=== PATIENT | male | born 1980 | race Caucasian/White ===

== ENCOUNTER 2018-12-14 22:15 | Emergency (ER) | payer SELFPAY ==
[~2018-12-14] VITALS: Ht 177.8 cm; Wt 83.9 kg
[~2018-12-14 22:15] MED LIST: NAPR-243 PO; TRAM50TA2 PO
[2018-12-14] MEDS ORDERED: LIDOCAINE/EPI 2% 1:100,00 (XYLOCAINE) 20 ML VIAL ONE (22:19)
--- NOTE | 2018-12-14 22:58 | NUR ---
REPORT FROM LILLIANA WALLACE. CARE ASSUMED AT THIS TIME.
[2018-12-14 23:03] LABS: BASOPHILS # (AUTO) 0.1 10^3/uL (0.0-0.1); BASOPHILS % (AUTO) 0 % (0-10); EOSINOPHILS # (AUTO) 0.2 10^3/uL (0.0-0.3); EOSINOPHILS % (AUTO) 1 % (0-10); HEMATOCRIT 48 % (40-54); HEMOGLOBIN 16.7 G/DL (13.3-17.7); LYMPHOCYTES # (AUTO) 2.4 X 10^3 (1.0-4.0); LYMPHOCYTES % (AUTO) 16 % (12-44); MEAN CORPUSCULAR HEMOGLOBIN 32 PG (25-34); MEAN CORPUSCULAR HGB CONC 35 G/DL (32-36); MEAN CORPUSCULAR VOLUME 91 FL (80-99); MONOCYTES # (AUTO) 0.9 X 10^3 (0.0-1.0); MONOCYTES % (AUTO) 6 % (0-12); NEUTROPHILS # (AUTO) 11.7 X 10^3 (1.8-7.8); NEUTROPHILS % (AUTO) 77 % (42-75); PLATELET COUNT 258 10^3/uL (130-400); RED CELL DISTRIBUTION WIDTH 12.7 % (10.0-14.5); WHITE BLOOD COUNT 15.2 10^3/uL (4.3-11.0)
--- NOTE | 2018-12-14 23:06 | NUR ---
PT TO CT PER W/C AT THIS TIME.
[2018-12-14 23:17] LABS: BILIRUBIN,URINE NEGATIVE (NEGATIVE); CLARITY,URINE CLEAR; COLOR,URINE YELLOW; GLUCOSE, URINE (UA) NEGATIVE (NEGATIVE); KETONES,URINE NEGATIVE (NEGATIVE); LEUKOCYTE ESTERASE ,URINE NEGATIVE (NEGATIVE); NITRITE,URINE NEGATIVE (NEGATIVE); PH,URINE 6 (5-9); PROTEIN,URINE 1+ (NEGATIVE); UROBILINOGEN,URINE NORMAL (NORMAL)
[2018-12-14 23:23] LABS: ALANINE AMINOTRANSFERASE 210 U/L (0-55); ALBUMIN 4.6 GM/DL (3.2-4.5); ALKALINE PHOSPHATASE 98 U/L (40-136); BILIRUBIN,TOTAL 0.4 MG/DL (0.1-1.0); BUN/CREATININE RATIO 8; CALCIUM 8.9 MG/DL (8.5-10.1); CARBON DIOXIDE 18 MMOL/L (21-32); CHLORIDE 109 MMOL/L (98-107); CREATININE SERUM 0.86 MG/DL (0.60-1.30); GFR ESTIMATED > 60; GLUCOSE 106 MG/DL (70-105); POTASSIUM 3.4 MMOL/L (3.6-5.0); SALICYLATE < 5.0 MG/DL (5.0-20.0); SODIUM 142 MMOL/L (135-145); TOTAL PROTEIN 8.1 GM/DL (6.4-8.2)
[2018-12-14 23:23] LABS: SQUAMOUS EPITHELIAL CELL,UR RARE /HPF
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
--- NOTE | 2018-12-14 23:26 | NUR ---
PT AT DESK, [facility]. FAMILY ATTEMPTING TO CALM PT W/O SUCCESS.
[2018-12-14 23:28] LABS: AMPHETAMINE SCREEN, URINE NEGATIVE (NEGATIVE); BARBITURATE SCREEN URINE NEGATIVE (NEGATIVE); BENZODIAZEPINES SCREEN URINE NEGATIVE (NEGATIVE); CANNABINOID SCREEN, URINE POSITIVE (NEGATIVE); COCAINE SCREEN URINE NEGATIVE (NEGATIVE); METHADONE STAT NEGATIVE (NEGATIVE); METHAMPHETAMINE SCREEN URINE S NEGATIVE (NEGATIVE); OPIATE SCREEN URINE NEGATIVE (NEGATIVE); OXYCODONE STAT NEGATIVE (NEGATIVE); PROPOXYPHENE STAT NEGATIVE (NEGATIVE); TRICYCLIC ANTIDEPRESSANTS SCRE NEGATIVE (NEGATIVE)
[2018-12-14 23:30] LABS: ACETAMINOPHEN < 10 UG/ML (10-30)
--- NOTE | 2018-12-14 23:37 | NUR ---
PT TO RADIOLOGY W/ SHERIFF CAMACHO ET SECURITY
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
[2018-12-15 00:23] VITALS: BP 119/87
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
== END 2018-12-15 00:23 ==
LOC: EDUNIT# 22:15 → ER 22:16
DX: S01.01XA Laceration without foreign body of scalp, initial encounter (principal); S20.212A Contusion of left front wall of thorax, initial encounter; S00.531A Contusion of lip, initial encounter; S00.83XA Contusion of other part of head, initial encounter; F10.129 Alcohol abuse with intoxication, unspecified; F17.210 Nicotine dependence, cigarettes, uncomplicated; R40.2142 Coma scale, eyes open, spontaneous, at arrival to emergency department; R40.2252 Coma scale, best verbal response, oriented, at arrival to emergency department; R40.2362 Coma scale, best motor response, obeys commands, at arrival to emergency department; Y90.8 Blood alcohol level of 240 mg/100 ml or more; Y00.XXXA Assault by blunt object, initial encounter
CPT/HCPCS: 12015; 36415; 70450; 71046; 71100; 72125; 80053; 80306; 80320; 80329; 81000; 85025

== ENCOUNTER 2018-12-22 14:10 | Emergency (ER) | payer SELFPAY ==
[~2018-12-22] VITALS: Ht 185.4 cm; Wt 86.6 kg
[2018-12-22 14:35] VITALS: BP 138/77
== END 2018-12-22 14:35 | disposition home or self-care (01) ==
LOC: EDUNIT# 14:10 → ER 14:12
DX: S01.81XD Laceration without foreign body of other part of head, subsequent encounter (principal); X58.XXXD Exposure to other specified factors, subsequent encounter

== ENCOUNTER 2019-10-13 11:52 | Emergency (ER) | payer SELFPAY ==
[~2019-10-13] VITALS: Ht 177.8 cm; Wt 88.6 kg
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
--- NOTE | 2019-10-13 12:24 | Diagnostic Imaging Report ---
EXAMINATION: Right ankle radiographs, 3 views. COMPARISON: None. HISTORY: 39-year-old male, right ankle pain. Injury. FINDINGS: There is a well-corticated ossification below the tip of the medial malleolus which is most consistent with the sequela of remote prior injury or an accessory ossicle. There is also benign productive bone formation arising from the distal fibular tip. There is no identified acute fracture. The alignment of the ankle mortise is unremarkable. There is no tibiotalar joint effusion. There does appear to be mild soft tissue swelling laterally. IMPRESSION: 1. No identified acute bony abnormality of the right ankle. Dictated by: Dictated on workstation # [id number]
[2019-10-13 12:31] VITALS: BP 132/94
== END 2019-10-13 12:30 | disposition home or self-care (01) ==
LOC: EDUNIT# 11:52 → ER 11:53
DX: S90.01XA Contusion of right ankle, initial encounter (principal); W22.8XXA Striking against or struck by other objects, initial encounter
CPT/HCPCS: 73610

== ENCOUNTER 2020-02-05 18:49 | Emergency (ER) | payer SELFPAY ==
[~2020-02-05] VITALS: Ht 178 cm; Wt 82.5 kg
[2020-02-05 18:59] VITALS: BP 156/61
[2020-02-05] MEDS ORDERED: AMOX-358 PO (19:10)
--- NOTE | 2020-02-05 19:11 | ED Lower Extremity ---
General Chief Complaint: Lower Extremity Stated Complaint: SWELLING/REDNESS ON L PINKY TOE Source: patient Exam Limitations: no limitations History of Present Illness Date Seen by Provider: Feb 05, 2020 Time Seen by Provider: 19:07 Initial Comments He noticed a crack to the plantar surface of the fifth toe, the pinky toe on Sunday. This was at the MTP junction. No known injury. Over the course of the week he has had subsequent increase in pain swelling and redness. No known injury. Onset: just prior to arrival Severity: moderate Pain/Injury Location: left foot Method of Injury: unknown Modifying Factors: Worse With Movement Allergies and Home Medications Allergies Coded Allergies: No Known Drug Allergies (Unverified , 01/01/12) Patient Home Medication List Home Medication List Reviewed: Yes Review of Systems Constitutional: see HPI; No chills, No fever EENTM: see HPI Respiratory: no symptoms reported Cardiovascular: no symptoms reported Genitourinary: no symptoms reported Musculoskeletal: no symptoms reported Skin: no symptoms reported Psychiatric/Neurological: No Symptoms Reported Past Qppznqu-Loapay-Zsgebb Hx Patient Social History Alcohol Use: Denies Use Recreational Drug Use: No Smoking Status: Current Everyday Smoker Type Used: Cigarettes Recent Foreign Travel: No Contact w/Someone Who Travel: No Recent Hopitalizations: No Immunizations Up To Date Tetanus Booster (TDap): Unknown Seasonal Allergies Seasonal Allergies: No Past Medical History Surgeries: Yes (ortho) Respiratory: No Cardiac: No Neurological: No Reproductive Disorders: No Sexually Transmitted Disease: No HIV/AIDS: No Genitourinary: No Gastrointestinal: No Musculoskeletal: No Endocrine: No HEENT: No Cancer: No Psychosocial: No Integumentary: No Blood Disorders: No Adverse Reaction/Blood Tranf: No Physical Exam Vital Signs Capillary Refill : Height, Weight, BMI Height: 6'1.00" Weight: 191lbs. oz. 86.545555yl; 28.00 BMI Method:Stated General Appearance: WD/WN, no apparent distress HEENT: PERRL/EOMI, normal ENT inspection Respiratory: no respiratory distress, no accessory muscle use Hips: bilateral hip non-tender, bilateral hip normal inspection, bilateral hip normal range of motion Legs: bilateral leg non-tender, bilateral leg normal inspection, bilateral leg normal range of motion Knees: bilateral knee non-tender, bilateral knee normal inspection, bilateral knee normal range of motion Ankles: bilateral ankle non-tender, bilateral ankle normal inspection, bilateral ankle normal range of motion Feet: left foot other (there is a shallow [place] to the plantar surface of the fifth MTP joint left foot. To the dorsal aspect of the foot over the third fourth and fifth metatarsals there is some erythema with swelling and the swelling is mostly localized to the third fourth and fifth MTP joints.) Neurologic/Psychiatric: alert, normal mood/affect, oriented x 3 Skin: normal color, warm/dry Procedures/Interventions Suture Size: 5-0 Progress/Results/Core Measures Results/Orders My Orders Orders - ANAHI BISHOP APRN Ceftriaxone For Im Use (Rocephin For Im (02/05/20 19:15) Rx-Hydrocodone/Apap 5-325 Mg (Rx-Vicodin (02/05/20 19:15) Lidocaine 1% Inj 20 Ml (Xylocaine 1% Inj (02/05/20 19:15) Departure Impression Primary Impression: Cellulitis Qualified Codes: L03.90 - Cellulitis, unspecified Disposition: HOME, SELF-CARE Condition: Stable Departure-Patient Inst. Decision time for Depature: 19:09 Referrals: NO,LOCAL PHYSICIAN (PCP/Family) Primary Care Physician Patient Instructions: Cellulitis (Skin Infection), Adult (DC) Add. Discharge Instructions: 1. Stay home from work tomorrow, stay off the foot. It'll be about 24 hours before you notice improvement with antibiotics. Take the pain medication and antibiotics as directed. Return to ER for any worsening. All discharge instructions reviewed with patient and/or family. Voiced understanding. Scripts Amoxicillin/Potassium Clav (Augmentin 875-125 Tablet) 1 Each Tablet 1 EACH PO BID, #14 TAB 0 Refills Prov: ANAHI BISHOP APRN 02/05/20 Work/School Note: Work Release Form Date Seen in the Emergency Department: Feb 05, 2020 Return to Work: Feb 08, 2020 ANAHI BISHOP APRN Feb 05, 2020 19:11
[2020-02-05] MEDS ORDERED: RX-HYDROCODONE/APAP 5/325 MG #4 TAB PK PO PRN (19:15)
[2020-02-05] MEDS ORDERED: LIDOCAINE 1% INJ 20 ML 20 ML VIAL INJ ONE (19:15)
[2020-02-05] MEDS ORDERED: cefTRIAXone 1,000 MG/2.86 ml vial (IM ONLY) IM SCH (19:15)
== END 2020-02-05 19:17 | disposition home or self-care (01) ==
LOC: EDUNIT# 18:49 → ER 18:52
DX: L03.116 Cellulitis of left lower limb (principal); F17.210 Nicotine dependence, cigarettes, uncomplicated
CPT/HCPCS: 99284

== ENCOUNTER → 2020-07-30 | Outpatient (CLI) | payer BC ==
[~2020-07-30] MED LIST changes: +AMOX-358 PO; +CATHETER FLUSH 10 ML SYR IV PRN; +HOLD METFORMIN - RECEIVED CONTRAST 20 ML VIAL IV SCH; +IOHEXOL 350 MG/ML 100 ML (OMNIPAQUE 350) VIAL IV ONE; +NS 100 ML (IVPB) BAG IV ONE
--- NOTE | 2020-07-30 15:39 | Diagnostic Imaging Report ---
EXAMINATION: CT Abdomen with and without intravenous contrast. TECHNIQUE: Precontrast acquisitions were acquired through the abdomen . Multiple contiguous axial images were obtained through the abdomen after the administration of intravenous contrast. All CT scans use one or more of the following dose optimizing techniques: automated exposure control, MA and/or KvP adjustment based on a patient size and exam type, or iterative reconstruction. HISTORY: Hepatitis C. COMPARISON: None available. FINDINGS: Limited views of the lower thorax are unremarkable. There is an 8 mm hypoattenuating lesion in segment 4A (series 4, image 21). No arterial enhancement is seen. No washout on the delayed phase. It is only seen on the venous phase. There is no biliary ductal dilation. Gallbladder is not well seen. Pancreas is normal. Spleen is normal. Adrenal glands are normal. The kidneys are normal. There is no hydronephrosis. Visualized bowel is normal in caliber without obstruction or inflammation. No free fluid or air. No abdominal lymphadenopathy. Aorta is normal in caliber without aneurysm. There are no suspicious osseous lesions. IMPRESSION: 1. Indeterminate area of hypoattenuation in segment 4A of the liver. Three-month follow-up with liver MRI with [facility] is recommended for further evaluation. Dictated by: Dictated on workstation # [id number]
== END ==
LOC: RAD 14:45
PROVIDERS: ATTEND Pediatrics
DX: B18.2 Chronic viral hepatitis C (principal)
CPT/HCPCS: 74170

== ENCOUNTER 2020-08-09 12:15 | Emergency (ER) | payer BC ==
[~2020-08-09] VITALS: Ht 155.4 cm; Wt 75.7 kg
[~2020-08-09 12:15] MED LIST changes: -CATHETER FLUSH 10 ML SYR IV PRN; -HOLD METFORMIN - RECEIVED CONTRAST 20 ML VIAL IV SCH; -IOHEXOL 350 MG/ML 100 ML (OMNIPAQUE 350) VIAL IV ONE; -NS 100 ML (IVPB) BAG IV ONE
[2020-08-09 12:55] LABS: BILIRUBIN,URINE NEGATIVE (NEGATIVE); CLARITY,URINE CLEAR; COLOR,URINE YELLOW; GLUCOSE, URINE (UA) NEGATIVE (NEGATIVE); KETONES,URINE NEGATIVE (NEGATIVE); LEUKOCYTE ESTERASE ,URINE NEGATIVE (NEGATIVE); NITRITE,URINE NEGATIVE (NEGATIVE); PH,URINE 6.5 (5-9); PROTEIN,URINE NEGATIVE (NEGATIVE)
[2020-08-09 13:03] LABS: BACTERIA,URINE NEGATIVE /HPF; WBC,URINE RARE /HPF
--- NOTE | 2020-08-09 13:43 | ED Abdominal Pain ---
General Chief Complaint: Abdominal/GI Problems Stated Complaint: L BACK PAIN, ABD PAIN, Nursing Triage Note: pt reports llq abd pain and lower back painx2 days. pt reports no stool [id number]. reports he feels "knotted up" Sepsis Screen: No Definite Risk Source of Information: Patient Exam Limitations: No Limitations History of Present Illness Date Seen by Provider: Aug 09, 2020 Time Seen by Provider: 12:25 Initial Comments This is a well-appearing 40-year-old male presents to the ER with complaints of right lower quadrant abdominal pain and low back. States pain in his lower abdomen has been present since he quit drinking alcohol in April. States that he recently diagnosed with Hepatitis C and had a CT of his abdomen earlier this week which showed liver abnormalities. Additionally, states he has been having issues with his bowels and constipation, he is being closely followed by Dr. Jacey Sanchez at [facility]. He was recently given magnesium to help with his stools and states that he did have quite a bit of output. However he is concerned with the severe sudden pain in his right lower quadrant as this is new and changed from previous chronic symptoms. Has some chills and nausea. Denies fevers, cough, shortness of breath, chest pain. Allergies and Home Medications Allergies Coded Allergies: No Known Drug Allergies (Unverified , 01/01/12) Home Medications Amoxicillin/Potassium Clav 1 Each Tablet, 1 EACH PO BID Prescribed by: ANAHI BISHOP on 02/05/201909 Patient Home Medication List Home Medication List Reviewed: Yes Review of Systems Review of Systems Constitutional: see HPI EENTM: No Symptoms Reported Respiratory: No Symptoms Reported Cardiovascular: No Symptoms Reported Gastrointestinal: See HPI Genitourinary: See HPI Musculoskeletal: no symptoms reported Skin: no symptoms reported Psychiatric/Neurological: No Symptoms Reported Endocrine: No Symptoms Reported Hematologic/Lymphatic: No Symptoms Reported Past Esxemvf-Cxytlb-Qdqlic Hx Patient Social History Alcohol Use: Denies Use Drug of Choice: marijuana Smoking Status: Current Everyday Smoker Type Used: Cigarettes Recent Infectious Disease Expo: No Recent Hopitalizations: No Immunizations Up To Date Tetanus Booster (TDap): Unknown Seasonal Allergies Seasonal Allergies: No Past Medical History Surgeries: Yes (ortho) Respiratory: No Cardiac: No Neurological: No Reproductive Disorders: No Sexually Transmitted Disease: No HIV/AIDS: No Genitourinary: No Gastrointestinal: No Musculoskeletal: No Endocrine: No HEENT: No Cancer: No Psychosocial: No Integumentary: No Blood Disorders: No Adverse Reaction/Blood Tranf: No Physical Exam Vital Signs Vital Signs - First Documented 08/09/20 08/09/20 12:40 15:45 Temp 36.9 Pulse 87 Resp 20 B/P (MAP) 125/88 (100) Pulse Ox 97 O2 Delivery Room Air Capillary Refill : Less Than 3 Seconds Height/Weight/BMI Height: 6'1.00" Weight: 191lbs. oz. 86.364576vu; 26.00 BMI Method:Stated General Appearance: WD/WN, no apparent distress HEENT: PERRL/EOMI, normal ENT inspection, pharynx normal Neck: full range of motion, normal inspection Respiratory: lungs clear, normal breath sounds, no respiratory distress Cardiovascular: normal peripheral pulses, regular rate, rhythm, no murmur Gastrointestinal: normal bowel sounds, soft; No distended; guarding, rebound; No mass Extremities: normal range of motion, non-tender, normal inspection Neurologic/Psychiatric: no motor/sensory deficits, alert, normal mood/affect, oriented x 3 Skin: normal color, warm/dry Procedures/Interventions Suture Size: 5-0 Progress/Results/Core Measures Results/Orders Lab Results Laboratory Tests Test 08/09/20 12:50 08/09/20 13:54 Range/Units Urine Color YELLOW Urine Clarity CLEAR Urine pH 6.5 5-9 Urine Specific [place] 1.010 L 1.016-1.022 Urine Protein NEGATIVE NEGATIVE Urine Glucose (UA) NEGATIVE NEGATIVE Urine Ketones NEGATIVE NEGATIVE Urine Nitrite NEGATIVE NEGATIVE Urine Bilirubin NEGATIVE NEGATIVE Urine Urobilinogen 0.2 < = 1.0 MG/DL Urine Leukocyte Esterase NEGATIVE NEGATIVE Urine RBC (Auto) NEGATIVE NEGATIVE Urine RBC NONE /HPF Urine WBC RARE /HPF Urine Crystals NONE /LPF Urine Bacteria NEGATIVE /HPF Urine Casts NONE /LPF Urine Mucus NEGATIVE /LPF Urine Culture Indicated NO White Blood Count 8.3 4.3-11.0 10^3/uL Red Blood Count 5.09 4.30-5.52 10^6/uL Hemoglobin 16.1 13.3-17.7 g/dL Hematocrit 48 40-54 % Mean Corpuscular Volume 93 80-99 fL Mean Corpuscular Hemoglobin 32 25-34 pg Mean Corpuscular Hemoglobin Concent 34 32-36 g/dL Red Cell Distribution Width 12.0 10.0-14.5 % Platelet Count 249 130-400 10^3/uL Mean Platelet Volume 10.0 9.0-12.2 fL Immature Granulocyte % (Auto) 1 % Neutrophils (%) (Auto) 63 42-75 % Lymphocytes (%) (Auto) 24 12-44 % Monocytes (%) (Auto) 7 0-12 % Eosinophils (%) (Auto) 5 0-10 % Basophils (%) (Auto) 1 0-10 % Neutrophils # (Auto) 5.2 1.8-7.8 10^3/uL Lymphocytes # (Auto) 2.0 1.0-4.0 10^3/uL Monocytes # (Auto) 0.6 0.0-1.0 10^3/uL Eosinophils # (Auto) 0.4 H 0.0-0.3 10^3/uL Basophils # (Auto) 0.1 0.0-0.1 10^3/uL Immature Granulocyte # (Auto) 0.0 0.0-0.1 10^3/uL Sodium Level 139 135-145 MMOL/L Potassium Level 4.0 3.6-5.0 MMOL/L Chloride Level 106 98-107 MMOL/L Carbon Dioxide Level 23 21-32 MMOL/L Anion Gap 10 5-14 MMOL/L Blood Urea Nitrogen 11 7-18 MG/DL Creatinine 0.76 0.60-1.30 MG/DL Estimat Glomerular Filtration Rate > 60 BUN/Creatinine Ratio 14 Glucose Level 95 70-105 MG/DL Calcium Level 9.2 8.5-10.1 MG/DL Corrected Calcium 8.8 8.5-10.1 MG/DL Total Bilirubin 0.5 0.1-1.0 MG/DL Aspartate Amino Transf (AST/SGOT) 44 H 5-34 U/L Alanine Aminotransferase (ALT/SGPT) 74 H 0-55 U/L Alkaline Phosphatase 84 40-136 U/L C-Reactive Protein High Sensitivity 0.03 0.00-0.50 MG/DL Total Protein 7.9 6.4-8.2 GM/DL Albumin 4.5 3.2-4.5 GM/DL My Orders Orders - ORLANDO MOSLEY TRADE EMBALMER Urinalysis (08/09/20 12:25) Cbc With Automated Diff (08/09/20 13:44) Comprehensive Metabolic Panel (08/09/20 13:44) Ct Abd/Pelv W (Appendicitis) (08/09/20 13:44) Ed Iv/Invasive Line Start (08/09/20 13:44) Ketorolac Injection (Toradol Injection) (08/09/20 13:45) Ondansetron Injection (Zofran Injectio (08/09/20 13:45) Iohexol Injection (Omnipaque 350 Mg/Ml 1 (08/09/20 14:00) Received Contrast (Hold Metformin- Contr (08/09/20 14:00) Sodium Chloride Flush (Catheter Flush Sy (08/09/20 14:00) Ns (Ivpb) (Sodium Chloride 0.9% Ivpb Bag (08/09/20 14:00) Hs C Reactive Protein (08/09/20 13:54) Medications Given in ED Vital Signs/I&O 08/09/20 08/09/20 08/09/20 12:40 12:42 15:45 Temp 36.9 36.9 36.9 Pulse 87 87 71 Resp 20 20 16 B/P (MAP) 125/88 (100) 128/92 Pulse Ox 97 100 O2 Delivery Room Air Blood Pressure Mean: 100 Progress Progress Note : Progress Note Patient examined and in no acute distress. However with his sudden and new onset of right lower quadrant pain along with positive rebound will go ahead and work him up for appendicitis. Orders given for Toradol 15 mg IV push. Labs reviewed and are unremarkable other than slight elevation in LFTs. This is consistent with his history of alcohol use and recent diagnosis of hepatitis C. He is being closely monitored by Dr. Sanchez for this. States that he has follow-up for liver ultrasound coming up. CT abdomen pelvis with contrast shows unobstructed urinary tracts. No evidence for appendicitis, diverticulitis, or other acute inflammatory process. Reports marked improvement of pain after receiving Toradol and states he is feeling much better. Discussed that this might be inflammatory process and to continue taking ibuprofen as needed for pain at home as well as keeping that close follow-up with his primary care provider. Reviewed discharge plan of care and he is agreeable with plan. Diagnostic Imaging Diagonstic Imaging: CT Plain Films/CT/US/NM/MRI: abdomen, pelvis Comments NAME: LOGAN RUSSELL [facility] REC#: [id number] PT STATUS: DEP ER : [id number] PHYSICIAN: ORLANDO MOSLEY TRADE EMBALMER ADMIT DATE: 08/09/20/ER Signed Date of Exam:08/09/20 CT ABD/PELV W (APPENDICITIS) PROCEDURE: CT abdomen and pelvis with contrast, rule out appendicitis. TECHNIQUE: Multiple contiguous axial images were obtained through the abdomen and pelvis after the administration of intravenous contrast. All CT scans use one or more of the following dose optimizing techniques: automated exposure control, MA and/or KvP adjustment based on patient size and exam type or iterative reconstruction. INDICATION: Right lower quadrant pain. COMPARISON: Exam compared to 07/30/2020. FINDINGS: There are no findings of appendicitis and there is no urinary tract obstruction. Liver, spleen, adrenals, pancreas, and bile ducts are nonacute. There is no ileus or bowel obstruction. There is no free air. There is no pneumatosis. There is no inflammatory process. No ascites, abscess, hematoma, or other acute fluid collection. Urinary bladder is unremarkable. No aneurysm, adenopathy, or mass. The bony structures are nonacute. There is no lymphadenopathy. The abdominal wall is intact. The lung bases and bony structures are nonacute. Similar to the previous exam, there is some relative heterogeneous diminished enhancement in the left hepatic lobe; most notably segment DAMIAN without true measurable lesion or mass effect. This may be perfusion anomaly as we do note the left hepatic portal veins are less well opacified than the right hepatic lobe portal venous branches. Previous exam reports a history of cirrhosis. I would suggest a hepatic ultrasound Doppler to confirm patency of the left lobe portal veins and assess directional flow. The true mass cannot be identified. IMPRESSION: 1. Unobstructed urinary tracts. No evidence for appendicitis, diverticulitis, or other acute inflammatory process. 2. Similar to prior, there is some heterogeneous hypodensity in the left hepatic lobe with limited enhancement of the left lobe portal venous branches. Consider follow-up with hepatic Doppler and ultrasound in this patient with provided history of cirrhosis. 3. Normal spleen size and no ascites. Dictated by: Dictated on workstation # [id number] Dict: 08/09/20 1445 Trans: 08/09/20 1648 [id number] Interpreted by: NOEMY PARISH Electronically signed by: NOEMY PARISH 08/09/20 1648 Reviewed: Reviewed by Me Departure Impression Primary Impression: Abdominal pain Disposition: HOME, SELF-CARE Condition: Improved Departure-Patient Inst. Decision time for Depature: 15:40 Referrals: NO,LOCAL PHYSICIAN (PCP/Family) Primary Care Physician Patient Instructions: No Instuctions Given Add. Discharge Instructions: Plan: 1. Discharge home. Keep follow up with Dr. Sanchez. 2. Drink plenty of fluids. 3. May take Ibuprofen 600mg-800mg every 8 hours as needed for the next couple days for pain. Take with food. If symptoms persists you need to follow up with your primary care doctor or return to ED. 4. Return for any new or worsening symptoms. All discharge instructions reviewed with patient and/or family. Voiced understanding. Work/School Note: Work Release Form Date Seen in the Emergency Department: Aug 09, 2020 Return to Work: Aug 11, 2020 ORLANDO MOSLEY TRADE EMBALMER Aug 09, 2020 13:43
[2020-08-09] MEDS ORDERED: KETOROLAC 30 MG/ML VIAL IVP ONE (13:45)
[2020-08-09] MEDS ORDERED: ONDANSETRON 4 MG/2 ML (SDV) Z0FRAN IVP ONE (13:45)
[2020-08-09] MEDS ORDERED: IOHEXOL 350 MG/ML 100 ML (OMNIPAQUE 350) VIAL IV ONE (14:00)
[2020-08-09] MEDS ORDERED: NS 100 ML (IVPB) BAG IV ONE (14:00)
[2020-08-09] MEDS ORDERED: CATHETER FLUSH 10 ML SYR IV PRN (14:00)
[2020-08-09] MEDS ORDERED: HOLD METFORMIN - RECEIVED CONTRAST 20 ML VIAL IV SCH (14:00)
[2020-08-09 14:06] LABS: BASOPHILS # (AUTO) 0.1 10^3/uL (0.0-0.1); BASOPHILS % (AUTO) 1 % (0-10); EOSINOPHILS # (AUTO) 0.4 10^3/uL (0.0-0.3); EOSINOPHILS % (AUTO) 5 % (0-10); HEMATOCRIT 48 % (40-54); HEMOGLOBIN 16.1 g/dL (13.3-17.7); LYMPHOCYTES % (AUTO) 24 % (12-44); MEAN CORPUSCULAR HEMOGLOBIN 32 pg (25-34); MEAN CORPUSCULAR HGB CONC 34 g/dL (32-36); MEAN CORPUSCULAR VOLUME 93 fL (80-99); MONOCYTES # (AUTO) 0.6 10^3/uL (0.0-1.0); MONOCYTES % (AUTO) 7 % (0-12); NEUTROPHILS # (AUTO) 5.2 10^3/uL (1.8-7.8); NEUTROPHILS % (AUTO) 63 % (42-75); PLATELET COUNT 249 10^3/uL (130-400); WHITE BLOOD COUNT 8.3 10^3/uL (4.3-11.0)
[2020-08-09 14:15] LABS: ALBUMIN 4.5 GM/DL (3.2-4.5); CHLORIDE 106 MMOL/L (98-107); SODIUM 139 MMOL/L (135-145)
[2020-08-09 14:16] LABS: CALCIUM 9.2 MG/DL (8.5-10.1)
[2020-08-09 14:17] LABS: GLUCOSE 95 MG/DL (70-105)
[2020-08-09 14:18] LABS: TOTAL PROTEIN 7.9 GM/DL (6.4-8.2)
[2020-08-09 14:19] LABS: BILIRUBIN,TOTAL 0.5 MG/DL (0.1-1.0); CARBON DIOXIDE 23 MMOL/L (21-32)
[2020-08-09 14:21] LABS: ALKALINE PHOSPHATASE 84 U/L (40-136); CREATININE SERUM 0.76 MG/DL (0.60-1.30); GFR ESTIMATED > 60
[2020-08-09 14:22] LABS: BUN/CREATININE RATIO 14
[2020-08-09 14:24] LABS: ALANINE AMINOTRANSFERASE 74 U/L (0-55)
--- NOTE | 2020-08-09 14:59 | Diagnostic Imaging Report ---
PROCEDURE: CT abdomen and pelvis with contrast, rule out appendicitis. TECHNIQUE: Multiple contiguous axial images were obtained through the abdomen and pelvis after the administration of intravenous contrast. All CT scans use one or more of the following dose optimizing techniques: automated exposure control, MA and/or KvP adjustment based on patient size and exam type or iterative reconstruction. INDICATION: Right lower quadrant pain. COMPARISON: Exam compared to 07/30/2020. FINDINGS: There are no findings of appendicitis and there is no urinary tract obstruction. Liver, spleen, adrenals, pancreas, and bile ducts are nonacute. There is no ileus or bowel obstruction. There is no free air. There is no pneumatosis. There is no inflammatory process. No ascites, abscess, hematoma, or other acute fluid collection. Urinary bladder is unremarkable. No aneurysm, adenopathy, or mass. The bony structures are nonacute. There is no lymphadenopathy. The abdominal wall is intact. The lung bases and bony structures are nonacute. Similar to the previous exam, there is some relative heterogeneous diminished enhancement in the left hepatic lobe; most notably segment DAMIAN without true measurable lesion or mass effect. This may be perfusion anomaly as we do note the left hepatic portal veins are less well opacified than the right hepatic lobe portal venous branches. Previous exam reports a history of cirrhosis. I would suggest a hepatic ultrasound Doppler to confirm patency of the left lobe portal veins and assess directional flow. The true mass cannot be identified. IMPRESSION: 1. Unobstructed urinary tracts. No evidence for appendicitis, diverticulitis, or other acute inflammatory process. 2. Similar to prior, there is some heterogeneous hypodensity in the left hepatic lobe with limited enhancement of the left lobe portal venous branches. Consider follow-up with hepatic Doppler and ultrasound in this patient with provided history of cirrhosis. 3. Normal spleen size and no ascites. Dictated by: Dictated on workstation # [id number]
[2020-08-09 15:45] VITALS: BP 128/92
== END 2020-08-09 15:45 | disposition home or self-care (01) ==
LOC: EDUNIT# 12:15 → ER 12:17
DX: R10.31 Right lower quadrant pain (principal); F17.210 Nicotine dependence, cigarettes, uncomplicated
CPT/HCPCS: 74177; 80053; 81000; 85025; 86141

== ENCOUNTER 2020-08-29 21:05 | Emergency (ER) | payer BC ==
[~2020-08-29] VITALS: Ht 177 cm; Wt 77.0 kg
[2020-08-29 21:24] LABS: BILIRUBIN,URINE NEGATIVE (NEGATIVE); CLARITY,URINE CLEAR; COLOR,URINE YELLOW; GLUCOSE, URINE (UA) NEGATIVE (NEGATIVE); KETONES,URINE NEGATIVE (NEGATIVE); LEUKOCYTE ESTERASE ,URINE NEGATIVE (NEGATIVE); NITRITE,URINE NEGATIVE (NEGATIVE); PROTEIN,URINE NEGATIVE (NEGATIVE)
[2020-08-29 21:47] LABS: BACTERIA,URINE NEGATIVE /HPF; WBC,URINE RARE /HPF
[2020-08-29 22:13] LABS: BASOPHILS # (AUTO) 0.1 10^3/uL (0.0-0.1); BASOPHILS % (AUTO) 1 % (0-10); EOSINOPHILS # (AUTO) 0.2 10^3/uL (0.0-0.3); EOSINOPHILS % (AUTO) 2 % (0-10); HEMATOCRIT 44 % (40-54); HEMOGLOBIN 15.2 g/dL (13.3-17.7); LYMPHOCYTES # (AUTO) 2.8 10^3/uL (1.0-4.0); LYMPHOCYTES % (AUTO) 27 % (12-44); MEAN CORPUSCULAR HEMOGLOBIN 31 pg (25-34); MEAN CORPUSCULAR HGB CONC 35 g/dL (32-36); MEAN CORPUSCULAR VOLUME 90 fL (80-99); MEAN PLATELET VOLUME 9.9 fL (9.0-12.2); MONOCYTES # (AUTO) 0.9 10^3/uL (0.0-1.0); MONOCYTES % (AUTO) 8 % (0-12); NEUTROPHILS # (AUTO) 6.4 10^3/uL (1.8-7.8); NEUTROPHILS % (AUTO) 62 % (42-75); PLATELET COUNT 257 10^3/uL (130-400); WHITE BLOOD COUNT 10.4 10^3/uL (4.3-11.0)
[2020-08-29 22:27] LABS: ALBUMIN 4.5 GM/DL (3.2-4.5); CHLORIDE 104 MMOL/L (98-107); POTASSIUM 3.8 MMOL/L (3.6-5.0); SODIUM 140 MMOL/L (135-145)
[2020-08-29 22:28] LABS: CALCIUM 9.4 MG/DL (8.5-10.1)
[2020-08-29 22:29] LABS: GLUCOSE 109 MG/DL (70-105); TOTAL PROTEIN 7.6 GM/DL (6.4-8.2)
[2020-08-29 22:30] LABS: CARBON DIOXIDE 22 MMOL/L (21-32)
[2020-08-29] MEDS ORDERED: NS IV 1000 ML 1,000 ML IV ONE (22:30)
[2020-08-29] MEDS ORDERED: KETOROLAC 30 MG/ML VIAL IVP ONE (22:30)
[2020-08-29 22:31] LABS: BILIRUBIN,TOTAL 0.6 MG/DL (0.1-1.0)
[2020-08-29 22:33] LABS: ALKALINE PHOSPHATASE 86 U/L (40-136); CREATININE SERUM 0.86 MG/DL (0.60-1.30); GFR ESTIMATED > 60
[2020-08-29 22:34] LABS: BUN/CREATININE RATIO 14
[2020-08-29 22:36] LABS: ALANINE AMINOTRANSFERASE 40 U/L (0-55)
--- NOTE | 2020-08-29 22:43 | ED GI ---
General Chief Complaint: Abdominal/GI Problems Stated Complaint: ABD PAIN/CONSTIPATION/VOMITING Source of Information: Patient, Family Exam Limitations: No Limitations (SADIA ABBOTT STUDENT) History of Present Illness Date Seen by Provider: August 29, 2020 Time Seen by Provider: 22:10 Initial Comments Pt presents to ED with via private vehicle with complaints of abd pain, dysuria, and constipation. He states that his symptoms began about 3 months ago when he was found to have a R kidney stone and Hepatitis C and has been getting worse over the past 2 weeks. He has been unable to have normal bowel movements and needs to take oral laxatives or use enemas to have one, and reports that when he does have one it is small and pellet-like. He states he has lost about 30lbs over the past 2 months due to lack of appetite r/t pain caused by eating when it reaches his bowel. He also reports pain with urination and minimal urine output, but denies hematuria. He has taken Ibuprofen with no relief. He reports taking a dose of Xanax because the pain has been getting unbearable, but vomited shortly after with bilious emesis. Timing/Duration: Getting Worse Severity/Quality: Moderate, Aching Location: Generalized Abdomen Radiation: Groin Activities at Onset: Activity, Other (worse with urination, defecation) Modifying Factors: Improves With Analgesics (no improvement with Ibuprofen), Improves With Defecating (worse), Improves With Urinating (worse) Associated Symptoms: Back Pain; No Chest Pain, No Fever/Chills, No Headache, No Nausea/Vomiting, No Shortness of Air (SADIA ABBOTT STUDENT) Allergies and Home Medications Allergies Coded Allergies: No Known Drug Allergies (Unverified , 01/01/12) Home Medications Amoxicillin/Potassium Clav 1 Each Tablet, 1 EACH PO BID Prescribed by: ANAHI BISHOP on 02/05/201909 Patient Home Medication List Home Medication List Reviewed: Yes (SADIA ABBOTT STUDENT) Review of Systems Review of Systems Constitutional: No chills, No fever, No weakness EENTM: No Eye Pain, No Ear Pain Respiratory: Denies Cough, Denies Shortness of Air Cardiovascular: Denies Chest Pain, Denies Edema, Denies Lightheadedness Gastrointestinal: Abdominal Pain, Constipated; Denies Nausea; Poor Appetite, Poor Fluid Intake; Denies Vomiting Genitourinary: Burning; Denies Discharge, Denies Hematuria Musculoskeletal: back pain; No joint pain, No joint swelling, No muscle pain Skin: No change in color, No lesions, No rash Psychiatric/Neurological: Denies Headache, Denies Numbness, Denies Paresthesia, Denies Tingling, Denies Weakness Endocrine: Denies Excessive Sweating, Denies Flushing (MILENASADIA AGUILA STUDENT) All Other Systems Reviewed Negative Unless Noted: Yes (MILENAELVIASADIA MED STUDENT) Past Siqylcp-Xhzifh-Fqvwio Hx Past Med/Social Hx: Reviewed Nursing Past Med/Soc Hx (MILENASADIA AGUILA CYNTHIA) Patient Social History Alcohol Use: Denies Use Drug of Choice: marijuana Type Used: Cigarettes Recent Hopitalizations: No (MILENASADIA AYLA CYNTHIA) Immunizations Up To Date Tetanus Booster (TDap): Unknown (MILENASADIA AGUILA CYNTHIA) Seasonal Allergies Seasonal Allergies: No (MILENASADIA MONTANO AYLA CYNTHIA) Past Medical History Surgeries: Yes (ortho) Respiratory: No Cardiac: No Neurological: No Reproductive Disorders: No Sexually Transmitted Disease: No HIV/AIDS: No Genitourinary: No Gastrointestinal: No Musculoskeletal: No Endocrine: No HEENT: No Cancer: No Psychosocial: No Integumentary: No Blood Disorders: No Adverse Reaction/Blood Tranf: No (MILENASADIA Budding Biologist STUDENT) Physical Exam Vital Signs Vital Signs - First Documented 08/29/20 21:30 Temp 37.0 Pulse 89 Resp 16 B/P (MAP) 128/97 (107) Pulse Ox 96 O2 Delivery Room Air (YELENA MALLOY) Vital Signs Capillary Refill : (MILENASADIA Budding Biologist STUDENT) Height/Weight/BMI Height: 6'1.00" Weight: 191lbs. oz. 86.790017vl; 26.00 BMI Method:Stated General Appearance: WD/WN, mild distress HEENT: PERRL/EOMI, normal ENT inspection Neck: non-tender, full range of motion, supple, normal inspection Respiratory: chest non-tender, lungs clear, normal breath sounds, no respiratory distress, no accessory muscle use Cardiovascular: normal peripheral pulses, regular rate, rhythm, no edema, no gallop, no JVD, no murmur Peripheral Pulses: 2+ Radial Pulses (R), 2+ Radial Pulses (L) Gastrointestinal: soft, abnormal bowel sounds (hyperactive, tympanitic x4); No distended, No guarding; tenderness (mild diffuse tenderness) Rectal: deferred Extremities: normal range of motion, non-tender, normal inspection, no pedal edema, normal capillary refill Back: normal inspection, no vertebral tenderness, CVA tenderness (R) (mild) Neurologic/Psychiatric: no motor/sensory deficits, alert, normal mood/affect, oriented x 3 Skin: normal color, warm/dry Lymphatic: no adenopathy (MILENASADIA Budding Biologist STUDENT) Procedures/Interventions Suture Size: 5-0 (MILENA,[email or web address] STUDENT) Progress/Results/Core Measures Results/Orders Lab Results Laboratory Tests Test 08/29/20 21:19 08/29/20 22:07 Range/Units Urine Color YELLOW Urine Clarity CLEAR Urine pH 7.0 5-9 Urine Specific [place] 1.020 1.016-1.022 Urine Protein NEGATIVE NEGATIVE Urine Glucose (UA) NEGATIVE NEGATIVE Urine Ketones NEGATIVE NEGATIVE Urine Nitrite NEGATIVE NEGATIVE Urine Bilirubin NEGATIVE NEGATIVE Urine Urobilinogen 0.2 < = 1.0 MG/DL Urine Leukocyte Esterase NEGATIVE NEGATIVE Urine RBC (Auto) NEGATIVE NEGATIVE Urine RBC NONE /HPF Urine WBC RARE /HPF Urine Squamous Epithelial Cells NONE /HPF Urine Renal Epithelial Cells NONE /HPF Urine Crystals NONE /LPF Urine Bacteria NEGATIVE /HPF Urine Casts NONE /LPF Urine Mucus SMALL H /LPF Urine Culture Indicated NO White Blood Count 10.4 4.3-11.0 10^3/uL Red Blood Count 4.88 4.30-5.52 10^6/uL Hemoglobin 15.2 13.3-17.7 g/dL Hematocrit 44 40-54 % Mean Corpuscular Volume 90 80-99 fL Mean Corpuscular Hemoglobin 31 25-34 pg Mean Corpuscular Hemoglobin Concent 35 32-36 g/dL Red Cell Distribution Width 11.8 10.0-14.5 % Platelet Count 257 130-400 10^3/uL Mean Platelet Volume 9.9 9.0-12.2 fL Immature Granulocyte % (Auto) 0 % Neutrophils (%) (Auto) 62 42-75 % Lymphocytes (%) (Auto) 27 12-44 % Monocytes (%) (Auto) 8 0-12 % Eosinophils (%) (Auto) 2 0-10 % Basophils (%) (Auto) 1 0-10 % Neutrophils # (Auto) 6.4 1.8-7.8 10^3/uL Lymphocytes # (Auto) 2.8 1.0-4.0 10^3/uL Monocytes # (Auto) 0.9 0.0-1.0 10^3/uL Eosinophils # (Auto) 0.2 0.0-0.3 10^3/uL Basophils # (Auto) 0.1 0.0-0.1 10^3/uL Immature Granulocyte # (Auto) 0.0 0.0-0.1 10^3/uL Sodium Level 140 135-145 MMOL/L Potassium Level 3.8 3.6-5.0 MMOL/L Chloride Level 104 98-107 MMOL/L Carbon Dioxide Level 22 21-32 MMOL/L Anion Gap 14 5-14 MMOL/L Blood Urea Nitrogen 12 7-18 MG/DL Creatinine 0.86 0.60-1.30 MG/DL Estimat Glomerular Filtration Rate > 60 BUN/Creatinine Ratio 14 Glucose Level 109 H 70-105 MG/DL Calcium Level 9.4 8.5-10.1 MG/DL Corrected Calcium 9.0 8.5-10.1 MG/DL Total Bilirubin 0.6 0.1-1.0 MG/DL Aspartate Amino Transf (AST/SGOT) 26 5-34 U/L Alanine Aminotransferase (ALT/SGPT) 40 0-55 U/L Alkaline Phosphatase 86 40-136 U/L Total Protein 7.6 6.4-8.2 GM/DL Albumin 4.5 3.2-4.5 GM/DL Serum Alcohol < 10 <10 MG/DL (YELENA MALLOY) My Orders Orders - YELENA MALLOY Ua Culture If Indicated (08/29/20 21:09) Cbc With Automated Diff (08/29/20 21:09) Comprehensive Metabolic Panel (08/29/20 21:09) Post Void Residual Assessment (08/29/20 22:25) Ed Iv/Invasive Line Start (08/29/20 22:25) Ns Iv 1000 Ml (Sodium Chloride 0.9%) (08/29/20 22:30) Ct Abdomen/Pelvis W (08/29/20 22:26) Alcohol (08/29/20 22:26) Ketorolac Injection (Toradol Injection) (08/29/20 22:30) Iohexol Injection (Omnipaque 350 Mg/Ml 1 (08/29/20 23:00) Received Contrast (Hold Metformin- Contr (08/29/20 23:00) Ns (Ivpb) (Sodium Chloride 0.9% Ivpb Bag (08/29/20 23:00) (YELENA MALLOY) Medications Given in ED Current Medications Medications Dose Ordered Sig/Pat Route Start Time Stop Time Status Last Admin Dose Admin Iohexol 100 ml ONCE ONCE IV 08/29/20 23:00 08/29/20 23:01 DC 08/29/20 22:54 94 ML Ketorolac Tromethamine 30 mg ONCE ONCE IVP 08/29/20 22:30 08/29/20 22:31 DC 08/29/20 22:32 30 MG Sodium Chloride 100 ml ONCE ONCE IV 08/29/20 23:00 08/29/20 23:01 DC 08/29/20 22:54 80 ML Sodium Chloride 1,000 ml @ 0 mls/hr Q0M ONCE IV 08/29/20 22:30 08/29/20 22:31 DC 08/29/20 22:31 0 MLS/HR (YELENA MALLOY) Vital Signs/I&O 08/29/20 21:30 Temp 37.0 Pulse 89 Resp 16 B/P (MAP) 128/97 (107) Pulse Ox 96 O2 Delivery Room Air (YELENA MALLOY) Progress Progress Note : Time: 23:58 Progress Note I attest that I saw this patient alongside the medical student and agree with his documented history, physical exam and review of systems except as otherwise noted. Patient's twice a day MiraLAX and once a day enemas. We discussed increasing this regimen. Be reasonable for him to consider a colonoscopy as well. We discussed referral to Dr. Anderson for outpatient follow-up. Milk of molasses enema. He did receive some pain relief from the Toradol (YELENA MALLOY) Diagnostic Imaging Diagonstic Imaging: CT Plain Films/CT/US/NM/MRI: abdomen, pelvis Comments No acute findings involving the solid abdominal organs. Irregular heterogeneity of the left hepatic lobe is again noted and of indeterminate etiology. Recommend consideration for nonemergent hepatic protocol imaging. The gallbladder appears contracted. Negative for lower GI tract obstruction or pneumatosis. Negative for pneumoperitoneum or abdominal pelvic fluid collections. The appendix was not visualized. Reviewed: Reviewed by Me (YELENA MALLOY) Departure Impression Primary Impression: Obstipation Disposition: 01 HOME, SELF-CARE Condition: Stable Departure-Patient Inst. Decision time for Depature: 00:00 (YELENA MALLOY) Referrals: JAIME ANDERSON MD, JULIE A MD (PCP/Family) Primary Care Physician Patient Instructions: Constipation, Adult (DC) Add. Discharge Instructions: Increase MiraLAX to 1 capful in 6 to 8 ounces of fluid 4-6 times a day. Enemas at least once a day. I suggest a milk of molasses enema with 2 capsules of Dulcolax dumped into a Fleet enema, half cup of molasses and 2 cups of milk. Administer this through an enema bucket. Dulcolax twice a day until relief of symptoms. Call Dr. Anderson, general surgery and set up an appointment to discuss colonoscopy. Your primary care doctor can help you set this up as well. You need to follow-up with your primary care doctor to discuss what imaging has been done of your liver and if you need any further imaging done at this time. All discharge instructions reviewed with patient and/or family. Voiced understanding. Copy Copies To 1: JAIME ANDERSON MD; KIMANI BURGESS MD, JOHNNY MED STUDENT August 29, 2020 22:43 YELENA MALLOY August 30, 2020 00:03
[2020-08-29] MEDS ORDERED: IOHEXOL 350 MG/ML 100 ML (OMNIPAQUE 350) VIAL IV ONE (23:00)
[2020-08-29] MEDS ORDERED: NS 100 ML (IVPB) BAG IV ONE (23:00)
[2020-08-29] MEDS ORDERED: HOLD METFORMIN - RECEIVED CONTRAST 20 ML VIAL IV SCH (23:00)
[2020-08-30 00:19] VITALS: BP 124/88
--- NOTE | 2020-08-30 07:14 | Diagnostic Imaging Report ---
PROCEDURE: CT abdomen and pelvis with contrast. TECHNIQUE: Multiple contiguous axial images were obtained through the abdomen and pelvis after administration of intravenous contrast. Auto Exposure Controls were utilized during the CT exam to meet ALARA standards for radiation dose reduction. All CT scans use one or more of the following dose optimizing techniques: automated exposure control, MA and/or KvP adjustment based on patient size and exam type or iterative reconstruction. INDICATION: Abdominal pain with constipation and emesis. COMPARISON: 08/09/2020 Heterogeneous enhancement in the left lobe of the liver has a stable overall appearance. A discrete mass lesion is not identified. There is no evidence of pancreatic, splenic, adrenal gland or renal abnormality. There is no evidence of bowel obstruction. No organized fluid collection is identified. The appendix is not visualized with certainty. Unopacified urinary bladder is unremarkable. IMPRESSION: No acute abnormality is identified. There is continued heterogeneous enhancement in the left hepatic lobe and clinical correlation would be useful. Dictated by: Dictated on workstation # [id number]
== END 2020-08-30 00:20 | disposition home or self-care (01) ==
LOC: EDUNIT# 21:05 → ER 21:08
DX: K59.00 Constipation, unspecified (principal)
CPT/HCPCS: 74177; 80053; 81000; 85025; 99284; G0480; 36415; 80320

== ENCOUNTER 2020-09-05 22:31 | Emergency (ER) | payer BC ==
[~2020-09-05] VITALS: Ht 177 cm; Wt 77.0 kg
[2020-09-05 23:00] LABS: BILIRUBIN,URINE NEGATIVE (NEGATIVE); CLARITY,URINE SL CLOUDY; COLOR,URINE YELLOW; GLUCOSE, URINE (UA) NEGATIVE (NEGATIVE); KETONES,URINE NEGATIVE (NEGATIVE); LEUKOCYTE ESTERASE ,URINE NEGATIVE (NEGATIVE); NITRITE,URINE NEGATIVE (NEGATIVE); PROTEIN,URINE NEGATIVE (NEGATIVE)
[2020-09-05 23:07] LABS: BACTERIA,URINE TRACE /HPF; WBC,URINE RARE /HPF
[2020-09-05 23:08] LABS: AMORPHOUS SEDIMENT,UR FEW AMOR URATES /LPF; SQUAMOUS EPITHELIAL CELL,UR RARE /HPF
[2020-09-06] MEDS ORDERED: HYDR25SU28 RC (00:27)
[2020-09-06] MEDS ORDERED: CLT4KB PO (00:27)
--- NOTE | 2020-09-06 00:27 | ED GI ---
General Chief Complaint: Abdominal/GI Problems Stated Complaint: ABD PAIN / CONST. / LOW BACK PAIN / BLOOD IN STOOL Nursing Triage Note: c/o constipation x3 months pain in right groin radiating to right flank. reports no bm x3 months. Sepsis Screen: No Definite Risk Allergies and Home Medications Allergies Coded Allergies: No Known Drug Allergies (Unverified , 01/01/12) Home Medications Amoxicillin/Potassium Clav 1 Each Tablet, 1 EACH PO BID Prescribed by: ANAHI BISHOP on 02/05/201909 Past Vefghqc-Poipzy-Kxwjqj Hx Patient Social History Alcohol Use: Denies Use Drug of Choice: cannibus Smoking Status: Current Everyday Smoker Type Used: Cigarettes Recent Infectious Disease Expo: No Recent Hopitalizations: No Immunizations Up To Date Tetanus Booster (TDap): Unknown Seasonal Allergies Seasonal Allergies: No Past Medical History Surgeries: No Respiratory: No Cardiac: No Neurological: No Reproductive Disorders: No Sexually Transmitted Disease: No HIV/AIDS: No Genitourinary: No Gastrointestinal: Yes Chronic Constipation, Hepatitis Musculoskeletal: No Endocrine: No HEENT: No Cancer: No Psychosocial: No Integumentary: No Blood Disorders: No Adverse Reaction/Blood Tranf: No Physical Exam Vital Signs Vital Signs - First Documented 09/05/20 23:12 Temp 35.6 Pulse 124 Resp 18 B/P (MAP) 137/117 (124) Pulse Ox 97 O2 Delivery Room Air Capillary Refill : Less Than 3 Seconds Height/Weight/BMI Height: 6'1.00" Weight: 191lbs. oz. 86.618007uz; 24.00 BMI Method:Stated Procedures/Interventions Suture Size: 5-0 Progress/Results/Core Measures Results/Orders Lab Results Laboratory Tests Test 09/05/20 22:39 Range/Units Urine Color YELLOW Urine Clarity SL CLOUDY Urine pH 6.0 5-9 Urine Specific [place] 1.025 H 1.016-1.022 Urine Protein NEGATIVE NEGATIVE Urine Glucose (UA) NEGATIVE NEGATIVE Urine Ketones NEGATIVE NEGATIVE Urine Nitrite NEGATIVE NEGATIVE Urine Bilirubin NEGATIVE NEGATIVE Urine Urobilinogen 0.2 < = 1.0 MG/DL Urine Leukocyte Esterase NEGATIVE NEGATIVE Urine RBC (Auto) NEGATIVE NEGATIVE Urine RBC NONE /HPF Urine WBC RARE /HPF Urine Squamous Epithelial Cells RARE /HPF Urine Crystals PRESENT H /LPF Urine Amorphous Sediment FEW ANAND URATES H /LPF Urine Bacteria TRACE /HPF Urine Casts NONE /LPF Urine Mucus MODERATE H /LPF Urine Culture Indicated NO My Orders Orders - HARRIET BERGMAN DO Ua Culture If Indicated (09/05/20 22:52) Acute Abd Series (09/05/20 23:47) Vital Signs/I&O 09/05/20 23:12 Temp 35.6 Pulse 124 Resp 18 B/P (MAP) 137/117 (124) Pulse Ox 97 O2 Delivery Room Air Blood Pressure Mean: 124 Departure Impression Primary Impression: Constipation Disposition: 01 HOME, SELF-CARE Condition: Stable Departure-Patient Inst. Decision time for Depature: 00:25 Referrals: JAIME SCHOFIELD MD, JULIE A MD (PCP/Family) Primary Care Physician Patient Instructions: Constipation, Adult (DC) Add. Discharge Instructions: KEEP YOUR APPOINTMENT WITH DR. SCHOFIELD TOMORROW All discharge instructions reviewed with patient and/or family. Voiced understanding. Scripts Hydrocortisone Acetate (Anusol-Hc) 25 Mg Supp.rect 25 MG RC TID, #10 SUPP.RECT Prov: HARRIET BERGMAN DO 09/06/20 Peg/Electrolytes (Golytely Solution) 4,000 Ml Soln 4000 ML PO UD, #1 EA Prov: HARRIET BERGMAN DO 09/06/20 HARRIET BERGMAN DO September 06, 2020 00:27
[2020-09-06 00:41] VITALS: BP 156/96
[2020-09-06] MEDS ORDERED: KETOROLAC 60 MG/2 ML VIAL IM ONE (00:45)
--- NOTE | 2020-09-06 06:41 | Diagnostic Imaging Report ---
INDICATION: Abdominal pain COMPARISON: None. FINDINGS: Acute abdominal series demonstrates mild to moderate constipation without obstruction or ileus or free air. The chest is normal. Osseous structures intact. IMPRESSION: Constipation. Dictated by: Dictated on workstation # [id number]
[2020-09-08] MEDS ORDERED: SOFO1TAB PO (15:02)
== END 2020-09-06 00:42 | disposition home or self-care (01) ==
LOC: EDUNIT# 22:31 → ER 22:32
DX: K59.09 Other constipation (principal); F17.210 Nicotine dependence, cigarettes, uncomplicated
CPT/HCPCS: 74022; 81000

== ENCOUNTER → 2020-09-09 | Outpatient (CLI) | payer BC ==
[~2020-09-09] MED LIST changes: +CLT4KB PO; +HYDR25SU28 RC; +ONDN4T PO; +PANT40TA52 PO; +SOFO1TAB PO
== END | disposition home or self-care (01) ==
LOC: PREOP 07:35
PROVIDERS: ATTEND Surgery
DX: Z01.818 Encounter for other preprocedural examination (principal)

== ENCOUNTER 2020-09-10 11:43 | Day surgery (SDC) | payer BC ==
[2020-09-10] VITALS (7 sets, daily range): BP systolic 127–141; BP diastolic 80–99
[~2020-09-10] VITALS: Ht 177 cm; Wt 77.0 kg
[~2020-09-10 11:43] MED LIST changes: -ONDN4T PO; -PANT40TA52 PO
[2020-09-10] MEDS ORDERED: LACTATED RINGERS 1,000 ML IV ONE ×3 (12:20→14:36)
--- NOTE | 2020-09-10 12:20 | Conscious Sedation/ASA ---
Conscious Sedation Pre-Proced Time 12:00 ASA Score 2 For ASA 3 and 4: Consider anesthesia and medical clearance. Also, for patients with a history of failed moderate sedation consider anesthesia. Airway Lungs Heart ASA score ASA 1: a normal healthy patient ASA 2: a patient with a mild systemic disease (mid diabetes, controlled hypertension, obesity ASA 3: a patient with a severe systemic disease that limits activity (angina, COPD, prior Myocardial infarction) ASA 4: a patient with an incapacitating disease that is a constant threat to life (CHF, renal failure) ASA 5: a moribund patient not expected to survive 24 hrs. (ruptured aneurysm) ASA 6: a declared brain- patient whose organs are being harvested. For emergent operations, add the letter E after the classification Mallampati Classification Grade 2 Sedation Plan Analgesia, Amnesia, Plan communicated to team members, Discussed options with patient/fam, Discussed risks with patient/fam The patient is an appropriate candidate to undergo the planned procedure, sedation, and anesthesia. The patient immediately re-assessed prior to indication. JAIME SCHOFIELD MD September 10, 2020 12:20
[2020-09-10] MEDS ORDERED: LACTATED RINGERS 1,000 ML IV STA (12:22)
--- NOTE | 2020-09-10 12:22 | Progress Note-Pre Operative ---
Pre-Operative Progress Note H&P Reviewed The H&P was reviewed, patient examined and no changes noted. Date Seen by Provider: September 10, 2020 Time Seen by Provider: 12:00 Date H&P Reviewed: September 10, 2020 Time H&P Reviewed: 12:00 Pre-Operative Diagnosis: weight loss, rectal bleed JAIME SCHOFIELD MD September 10, 2020 12:22
--- NOTE | 2020-09-10 12:23 | Discharge Inst-Surgical ---
D/C Lap Instructions-CHANDU Follow Up Appt in 2 weeks Activity as tolerated High Fiber Diet 25g or more per day Avoid Alcohol, Caffeine, Spicy [place] and Acid foods. Drink 64 fluid oz or more of fluids per day. Symptoms to Report: Fever over 101 degree F, Nausea/Vomiting If any problems/questions: Contact your physician or go to Emergency Room JAIME SCHOFIELD MD September 10, 2020 12:23
[2020-09-10] MEDS ORDERED: morphine INJ 10 MG/ML 1ML (SYR OR VIAL) IVP PRN ×2 (12:30)
[2020-09-10] MEDS ORDERED: HYDROcodone/APAP 5 MG/325 MG (LORTAB) TAB PO PRN (12:30)
[2020-09-10] MEDS ORDERED: LIDOCAINE JELLY 2% 6 ML SYRINGE MM PRN (12:30)
[2020-09-10] MEDS ORDERED: ACETAMINOPHEN 325 MG TABLET PO PRN (12:30)
[2020-09-10] MEDS ORDERED: LIDOCAINE JELLY 2% 6 ML SYRINGE ONE (14:06)
[2020-09-10] MEDS ORDERED: PROPOFOL INJECTION 50 ML IV ONE ×2 (14:10→14:30)
[2020-09-10] MEDS ORDERED: MIDAZOLAM 2 MG/2 ML (VERSED) VIAL ONE (14:11)
[2020-09-10] MEDS ORDERED: ONDANSETRON 4 MG/2 ML (SDV) Z0FRAN ONE ×2 (14:47→15:06)
[2020-09-10] MEDS: ONDANSETRON 4 MG/2 ML (SDV) Z0FRAN IVP PRN ×2 (14:52→15:15)
--- NOTE | 2020-09-10 14:54 | Anesthesia-General Post-Op ---
MAC Patient Condition Mental Status/LOC: Same as Preop Cardiovascular: Satisfactory Nausea/Vomiting: Absent Respiratory: Satisfactory Pain: Controlled Complications: Absent Post Op Complications Complications None Follow Up Care/Instructions Patient Instructions None needed. Anesthesiology Discharge Order Discharge Order Patient is doing well, no complaints, stable vital signs, no apparent adverse anesthesia problems. No complications reported per nursing. JANETTE BECK CRNA September 10, 2020 14:54
[2020-09-10] MEDS ORDERED: ONDN4T PO (15:25)
[2020-09-10] MEDS ORDERED: PANT40TA52 PO (15:25)
--- NOTE | 2020-09-10 18:12 | Progress Note-Post Operative ---
Post-Operative Progess Note Surgeon (s)/Hide Salter (s) Surgeon JAIME SCHOFIELD MD Hide Salter: none Pre-Operative Diagnosis weight loss, rectal bleed Post-Operative Diagnosis chronic stage 2 ext and int hemorrhoids, mild patch inflammation rectum vs. flap polyp. Procedure & Operative Findings Date of Procedure 09/10/20 Procedure Performed/Findings colonoscopy with bx. Anesthesia Type mac Estimated Blood Loss Estimated blood loss (mL): minimal Specimens/Packing Specimens Removed rectal lesion JAIME SCHOFIELD MD September 10, 2020 18:12
--- NOTE | 2020-09-10 19:23 | OPERATIVE REPORT ---
DATE OF SERVICE: 09/10/2020 ATTENDING PRIMARY CARE PHYSICIAN: Dr. Jacey Sanchez. PREOPERATIVE DIAGNOSES: Weight loss, hepatitis C, cholelithiasis. POSTOPERATIVE DIAGNOSES: Chronic stage II external and internal hemorrhoids, rectal polyp versus trauma secondary to enema. PROCEDURE: Colonoscopy with biopsy. SURGEON: Jaime Schofield MD ANESTHESIA: Monitored anesthesia care. ESTIMATED BLOOD LOSS: Minimal. FINDINGS: Chronic stage II external and internal hemorrhoids, rectal polyp versus trauma secondary to enema. DISPOSITION: The patient tolerated the procedure well. INDICATIONS: The patient is a 40-year-old male who was referred over to us for constipation as well as weight loss. He states that for the past 3 months that he has had difficulty having bowel movements, despite taking stool softeners as well as different laxatives. He also reports having occasional episodes of blood in the stool. He also reports that he has developed nausea, vomiting and has lost approximately 50 pounds in the last three months. This may be multifactorial. He did undergo a CT scan, which did show biliary sludge. He was also recently diagnosed with hepatitis C and also does have a previous history of alcohol abuse and recently quit. DESCRIPTION OF PROCEDURE: The patient was brought to the endoscopy suite, laid in the left lateral decubitus position with head slightly elevated. After adequate IV pain and sedative medications and monitored anesthesia care, a digital rectal examination was performed. Chronic stage II external and internal hemorrhoids were identified, which were not actively edematous nor inflamed and no bleeding. Normal sphincter tone was felt and there were no palpable masses. The endoscope was then intubated to the anus and rectum gently insufflated. There was an area of irritation versus a flat polyp identified of the rectum. This also could have been due to trauma from what he states as enema the night before the procedure. Biopsies were taken with forceps with visualization of good hemostasis. The endoscope was then advanced through the sigmoid colon where no diverticulosis identified. The endoscope was then advanced to remainder of the descending, transverse and ascending colon to the cecum. These segments were normal. No other lesions identified. The endoscope was then slowly withdrawn while taking a second look and suctioning of residual air with no additional findings. The patient tolerated the procedure well. We will await the biopsy results; however, we feel that most likely etiology of his weight loss, nausea, vomiting is again multifactorial, but we do feel that there is a gallbladder component to this where he states that the majority of his nausea and vomiting is after eating meals and biliary sludge also identified on recent CT scan. We will schedule him for an outpatient laparoscopic cholecystectomy. Job ID: [id number] DocumentID: [id number] Dictated Date: 09/10/2020 14:47:58 Back Tender Date: 09/10/2020 19:23:17 Dictated By: JAIME SCHOFIELD MD MTDD
[2020-09-12] MEDS ORDERED: DICY20TA10 PO (22:20)
[2020-09-12] MEDS ORDERED: HYOS0.1283 SL (22:20)
[2020-09-12] MEDS ORDERED: PANT40TA2 PO (22:20)
== END 2020-09-10 15:55 | disposition home or self-care (01) ==
LOC: ENDO 11:43
PROVIDERS: ATTEND Surgery
DX: K62.89 Other specified diseases of anus and rectum (principal); K64.1 Second degree hemorrhoids; K59.00 Constipation, unspecified; K83.8 Other specified diseases of biliary tract; B19.20 Unspecified viral hepatitis C without hepatic coma; K80.20 Calculus of gallbladder without cholecystitis without obstruction; F17.210 Nicotine dependence, cigarettes, uncomplicated; N20.9 Urinary calculus, unspecified; R63.4 Abnormal weight loss; Z79.899 Other long term (current) drug therapy; Z83.3 Family history of diabetes mellitus

== ENCOUNTER 2020-09-15 05:36 | Outpatient (CLI) | payer BC ==
[~2020-09-15] VITALS: Ht 180.3 cm; Wt 68.2 kg
[~2020-09-15 05:36] MED LIST changes: +DICY20TA10 PO; +HYOS0.1283 SL; +ONDN4T PO; +PANT40TA2 PO; +PANT40TA52 PO
[2020-09-16] MEDS ORDERED: HYDR-3817 PO (10:39)
== END 2020-09-15 10:54 | disposition home or self-care (01) ==
LOC: PREOP 05:36
PROVIDERS: ATTEND Surgery
DX: Z01.818 Encounter for other preprocedural examination (principal)

== ENCOUNTER 2020-09-16 09:37 | Day surgery (SDC) | payer BC ==
--- NOTE | 2020-09-15 20:37 | HISTORY AND PHYSICAL ---
DATE OF SERVICE: PROCEDURE DATE: 09/16/2020 ATTENDING PRIMARY CARE PHYSICIAN: Dr. Jacey Sanchez at [facility]. HISTORY OF PRESENT ILLNESS: The patient is a 40-year-old male, who was referred over to us for constipation as well as weight loss. He states that for the past 3 months that he has had difficulty having bowel movements, despite taking stool softeners as well as different laxatives. He also reports having occasional episodes of blood in his stool. He has developed nausea and vomiting, has lost approximately 50 pounds in the last 3 months. It was thought that this may be multifactorial. He did undergo a gallbladder ultrasound, which did show debris within the gallbladder, which would be consistent with biliary sludge. He was also recently diagnosed with hepatitis C and does have a previous history of alcohol abuse and reports that he did recently quit. On 09/10/2020, he underwent a colonoscopy with biopsy. Findings were chronic stage II external and internal hemorrhoids as well as a rectal polyp versus trauma secondary to enema. He tolerated the procedure well and was later discharged home. It was discussed with the patient that due to findings of his colonoscopy being unremarkable, it was thought that his symptoms may be related to his gallbladder and the biliary sludge and this was discussed with him about proceeding with a laparoscopic cholecystectomy. PAST MEDICAL HISTORY: Hepatitis C, history of alcohol abuse. PAST SURGICAL HISTORY: None. ALLERGIES: No known drug allergies. MEDICATIONS: Epclusa 400/100 mg. SOCIAL HISTORY: Positive for tobacco smoker, half pack per day for 20 years, previous for alcohol at 6 to 8 beers daily for five years. FAMILY HISTORY: Mother, diabetes, hypertension, stroke, myocardial infarction. REVIEW OF SYSTEMS: This is a well-nourished male, in no acute distress. He is not experiencing any shortness of breath or difficulty breathing. No chest pain, palpitations or diaphoresis. He does report episodes of nausea and vomiting as well as intermittent episodes of lower abdominal pain. No diarrhea, but does report frequent bouts of constipation. He does report occasional episodes of red blood per rectum. No dark tarry stools. No fever or chills. He also reports a 50-pound weight loss over the past 3 months. All other review of systems negative. PHYSICAL EXAMINATION: VITAL SIGNS: Blood pressure is 113/92. Current weight is 149.7 at 5 feet 11 inches. CHEST: Clear. Good breath sounds bilaterally. HEART: Regular, no murmurs. EXTREMITIES: No lower extremity edema. Negative Homans sign. HEENT: No scleral icterus. NECK: No cervical lymphadenopathy. ABDOMEN: Soft, nondistended. There is some tenderness in the epigastric as well as right upper quadrant abdominal region. No palpable masses. No organomegaly. SKIN: Warm, dry and pink. NEUROLOGIC: Awake, alert and oriented x3. ASSESSMENT AND PLAN: A 40-year-old male with symptomatic biliary sludge. At this time, we will recommend proceeding with a laparoscopic cholecystectomy. The risks and benefits of the procedure as well as the procedure and home care instructions were explained to the patient. The patient verbalized understanding of instructions and agrees to proceed as planned. At this time, we will proceed with scheduling him for a laparoscopic cholecystectomy. Job ID: [id number] DocumentID: [id number] Dictated Date: 09/15/2020 08:30:04 Soda Dispenser Date: 09/15/2020 08:56:44 Dictated By: GUTIERREZ OMER APRN
[~2020-09-16] VITALS: Ht 180 cm; Wt 68.2 kg
[2020-09-16] VITALS (11 sets, daily range): BP systolic 122–146; BP diastolic 86–101
[2020-09-16] MEDS ORDERED: ceFAZolin 2 GM IV Premixed 50 ML IV ONE (10:00)
[2020-09-16] MEDS ORDERED: LACTATED RINGERS 1,000 ML IV PRN (10:00)
[2020-09-16 10:16] LABS: BASOPHILS # (AUTO) 0.1 10^3/uL (0.0-0.1); BASOPHILS % (AUTO) 1 % (0-10); EOSINOPHILS # (AUTO) 0.2 10^3/uL (0.0-0.3); EOSINOPHILS % (AUTO) 3 % (0-10); HEMATOCRIT 45 % (40-54); HEMOGLOBIN 15.6 g/dL (13.3-17.7); LYMPHOCYTES # (AUTO) 2.2 10^3/uL (1.0-4.0); LYMPHOCYTES % (AUTO) 30 % (12-44); MEAN CORPUSCULAR HEMOGLOBIN 31 pg (25-34); MEAN CORPUSCULAR HGB CONC 34 g/dL (32-36); MEAN CORPUSCULAR VOLUME 90 fL (80-99); MEAN PLATELET VOLUME 9.9 fL (9.0-12.2); MONOCYTES # (AUTO) 0.6 10^3/uL (0.0-1.0); MONOCYTES % (AUTO) 8 % (0-12); NEUTROPHILS # (AUTO) 4.4 10^3/uL (1.8-7.8); NEUTROPHILS % (AUTO) 59 % (42-75); PLATELET COUNT 257 10^3/uL (130-400); WHITE BLOOD COUNT 7.5 10^3/uL (4.3-11.0)
--- NOTE | 2020-09-16 10:38 | Progress Note-Pre Operative ---
Pre-Operative Progress Note H&P Reviewed The H&P was reviewed, patient examined and no changes noted. Date Seen by Provider: September 16, 2020 Time Seen by Provider: 10:35 Date H&P Reviewed: September 16, 2020 Time H&P Reviewed: 10:30 Pre-Operative Diagnosis: Symptomatic biliary sludge GUTIERREZ OMER APRN September 16, 2020 10:38
[2020-09-16] MEDS ORDERED: HYDR-3817 PO (10:39)
--- NOTE | 2020-09-16 10:40 | Discharge Inst-Surgical ---
D/C Lap Instructions-KIDO Reconcile Patient Problems Problems Reviewed?: Yes New, Converted, or Re-Newed RX: RX on Chart Follow Up Appt in 2 weeks Activity as tolerated No driving for 24 hours No driving while on pain medications Incentive Spirometry use every 2 hours while awake Regular Diet Symptoms to Report: Fever over 101 degree F, Nausea/Vomiting Infection Signs and Symptoms to report: Increased redness, Foul odor of wound, Increased drainage Bathing instructions: May shower Operative Area Clean/Dry; Keep incision clean/dry If any problems/questions: Contact your physician or go to Emergency Room GUTIERREZ OMER APRN September 16, 2020 10:40
[2020-09-16] MEDS ORDERED: HYDROcodone/APAP 5 MG/325 MG (LORTAB) TAB PO ONE (10:45)
[2020-09-16] MEDS ORDERED: ACETAMINOPHEN 325 MG TABLET PO PRN (10:45)
[2020-09-16] MEDS ORDERED: morphine INJ 10 MG/ML 1ML (SYR OR VIAL) IVP PRN (10:45)
[2020-09-16] MEDS ORDERED: ONDANSETRON 4 MG/2 ML (SDV) Z0FRAN IVP PRN (10:45)
[2020-09-16] MEDS ORDERED: LIDOCAINE/EPI 1%-1:200,000 (XYLOCAINE) 30 ML VIAL ONE (10:53)
[2020-09-16] MEDS ORDERED: fentaNYL INJ 100 MCG/2 ML AMP ONE (11:07)
[2020-09-16] MEDS ORDERED: MIDAZOLAM 2 MG/2 ML (VERSED) VIAL ONE (11:07)
[2020-09-16] MEDS ORDERED: proPOfol 200 MG/20 ML (DIPRIVAN) VIAL IV ONE (11:11)
[2020-09-16] MEDS ORDERED: ROCURONIUM 10 MG/ML 5 ML SYRINGE IV ONE (11:11)
[2020-09-16] MEDS ORDERED: SEVOFLURANE (ULTANE) 15 ML INHAL SOLN ONE ×3 (11:11→13:46)
[2020-09-16] MEDS ORDERED: NEOSTIGMINE 3 MG/3 ML VIAL ONE (11:11)
[2020-09-16] MEDS ORDERED: GLYCOPYRROLATE 0.2 MG/ML (ROBINUL) 2 ML VIAL ONE (11:11)
[2020-09-16] MEDS ORDERED: ONDANSETRON 4 MG/2 ML (SDV) Z0FRAN ONE (11:11)
[2020-09-16] MEDS ORDERED: LIDOCAINE PF 2% 5 ML (XYLOCAINE) VIAL ONE (11:11)
[2020-09-16] MEDS ORDERED: LABETALOL HCL 20 MG/4 ML VIAL ONE (13:31)
--- NOTE | 2020-09-16 13:51 | Progress Note-Post Operative ---
Post-Operative Progess Note Surgeon (s)/Office Assistance (s) Surgeon JAIME SCHOFIELD MD Office Assistance: latisha beebe CHIEF OF STAFF DOCTOR Pre-Operative Diagnosis Symptomatic biliary sludge Post-Operative Diagnosis mucinous biliary debris, saundra hepatis mass Procedure & Operative Findings Date of Procedure 09/16/20 Procedure Performed/Findings laparoscopic cholecystectomy Anesthesia Type get Estimated Blood Loss Estimated blood loss (mL): minimal Specimens/Packing Specimens Removed gallbladder JAIME SCHOFIELD MD September 16, 2020 13:51
--- NOTE | 2020-09-16 14:01 | Anesthesia-General Post-Op ---
General Patient Condition Mental Status/LOC: Same as Preop Cardiovascular: Satisfactory Nausea/Vomiting: Absent Respiratory: Satisfactory Pain: Controlled Complications: Absent Post Op Complications Complications None Follow Up Care/Instructions Patient Instructions None needed. Anesthesia/Patient Condition Patient Condition Patient is doing well, no complaints, stable vital signs, no apparent adverse anesthesia problems. No complications reported per nursing. LU NICHOLS CRNA September 16, 2020 14:01
[2020-09-16] MEDS ORDERED: MEPERIDINE (DEMEROL) INJ 50 MG/ML IVP ONE (14:15)
[2020-09-16] MEDS ORDERED: morphine INJ 10 MG/ML 1ML (SYR OR VIAL) IVP ONE (14:15)
[2020-09-16] MEDS: ONDANSETRON 4 MG/2 ML (SDV) Z0FRAN IVP PRN ×2 (14:24→14:34)
[2020-09-16] MEDS ORDERED: HYDROcodone/APAP 7.5 MG/325 MG (LORTAB, LORCET PLUS) TABLET PO ONE (14:49)
[2020-09-16] MEDS ORDERED: HYDROcodone/APAP 5 MG/325 MG (LORTAB) TAB ONE (14:53)
--- NOTE | 2020-09-16 16:04 | OPERATIVE REPORT ---
DATE OF SERVICE: 09/16/2020 ATTENDING PRIMARY CARE PHYSICIAN: Dr. Jacey Sanchez. PREOPERATIVE DIAGNOSES: Symptomatic biliary dyskinesia with weight loss and history of hepatitis C. POSTOPERATIVE DIAGNOSES: Mucinous biliary debris, saundra hepatis mass. PROCEDURE: Laparoscopic cholecystectomy. SURGEON: Jaime Schofield MD. ANESTHESIA: General endotracheal. ESTIMATED BLOOD LOSS: Minimal. FINDINGS: There was a hardness at the saundra hepatis with extensive amount of adherent tissue. There was a clear mucinous debris within the gallbladder. DISPOSITION: The patient tolerated the procedure well. INDICATIONS: The patient is a 40-year-old male, who was referred over to us for constipation and weight loss. For the past three months, he has had a difficulty having bowel movements, despite taking stool softeners as well as different laxatives. He also had reported some occasional episodes of blood in the stools. He then developed nausea and vomiting and lost approximately 50 pounds in the past three months and this was thought to be multifactorial. He did undergo gallbladder ultrasound, which did show debris within the gallbladder. He was also recently diagnosed with hepatitis C and is being treated for this. He also does have a history of alcohol abuse and recently quit. He underwent a colonoscopy on 09/10/2020, which showed a chronic stage II external and internal hemorrhoids. A CT scan was performed at a different institution, which also did show biliary sludge. His chief complaint now is nausea and vomiting and inability to eat and anorexia. DESCRIPTION OF PROCEDURE: The patient was brought to the operating room, laid supine on the table. After adequate IV pain and sedative medications and general endotracheal intubation, the abdomen was prepped and draped in standard surgical fashion. A 0.5% Marcaine with epinephrine was then used to anesthetize the overlying skin in the left upper abdominal quadrant and a transverse skin incision made using a 15 blade. An 0 silk suture was applied to the medial aspect incision for retraction and a Veress needle inserted with low opening pressure of 0 mmHg and the abdomen was insufflated to 15 mmHg pressure. The Veress needle removed and a 5 mm XL trocar placed followed by a 5 mm 45-degree angle laparoscope visualizing the peritoneal cavity. A 4-quadrant abdominal exploration was performed. There appeared to be some steatotic changes of the liver; however, no liver cirrhosis. There was a distended gallbladder. Under direct visualization, we then proceeded to place a supraumbilical 10 mm port after the skin and peritoneal lining were anesthetized using 0.5% Marcaine with epinephrine and a transverse skin incision made using 15 blade. In a similar manner, two right upper abdominal quadrant 5 mm ports were placed. The patient was then placed in reverse Trendelenburg position as well as plane right side up, left side down. The fundus of the gallbladder was then retracted anteriorly and superiorly. The neck of the gallbladder was then retracted right lateral. The hepatoduodenal ligament was then opened using electrocautery as well as blunt dissection using the hook instrument. Upon examination, there appeared to be a hardness at the saundra hepatis of unsure of unknown etiology. There was also a significant amount of scar tissue within this region as well. This could be concerning for some form of neoplastic process which may also be contributing to his weight loss. We were able to identify the cystic duct and artery with blunt dissection and the entire critical view of safety was identified including the triangle of Calot as well as the cystic duct and artery as the only two structures going to gallbladder as well as the cystic plate behind the proximal gallbladder. A timeout was then taken and the cystic duct and artery were then clipped proximally and distally and cut with EndoShears. The gallbladder was then dissected off the liver bed using cautery on hook instrument with visualization of good hemostasis as well as no leaking ducts of Luschka. The gallbladder was removed through the 10 mm port site using an EndoCatch bag. The 10 mm port site fascia and peritoneum were then closed under direct visualization using a Edd-Angella device and 0 Vicryl suture. The abdomen was desufflated and remaining ports removed. All skin incisions were closed using 4-0 Monocryl running subcuticular sutures. Wounds were then cleaned and covered with Dermabond. The patient tolerated the procedure well. We will start IV normal pain medication as well as a clear liquid diet. We will also await the pathology results of the gallbladder. Again, there was a hard mass in the saundra hepatis, which may be concerning for a neoplastic process and we will also order an outpatient CT scan with IV contrast. We will have him follow up in 1 week. Job ID: [id number] DocumentID: [id number] Dictated Date: 09/16/2020 14:00:47 Ditch Inspector Date: 09/16/2020 16:03:37 Dictated By: JAIME SCHOFIELD MD [facility]
== END 2020-09-16 16:05 ==
LOC: SDC 09:37
PROVIDERS: ATTEND Surgery
DX: K81.1 Chronic cholecystitis (principal); K82.8 Other specified diseases of gallbladder; K59.00 Constipation, unspecified; R63.4 Abnormal weight loss; K64.4 Residual hemorrhoidal skin tags; K64.1 Second degree hemorrhoids; F17.210 Nicotine dependence, cigarettes, uncomplicated; Z86.19 Personal history of other infectious and parasitic diseases; Z79.899 Other long term (current) drug therapy; Z83.3 Family history of diabetes mellitus; Z82.49 Family history of ischemic heart disease and other diseases of the circulatory system
CPT/HCPCS: 36415; 85025; 87081; 94664

== ENCOUNTER → 2020-10-05 | Outpatient (CLI) | payer BC ==
[~2020-10-05] MED LIST changes: +GADOBUTROL 7.5 MMOL/7.5 ML (GADAVIST) VIAL IV ONE; +HYDR-3817 PO
--- NOTE | 2020-10-05 10:59 | Diagnostic Imaging Report ---
EXAMINATION: MRI of the abdomen with and without contrast. TECHNIQUE: Multiplanar, multisequence MR images of the abdomen were obtained with and without intravenous contrast. HISTORY: Liver mass COMPARISON: CT dated 08/29/2020 FINDINGS: There is a 5.3 x 5.2 cm area of diffusion restriction and contrast enhancement in segment 4A of the liver. There is a dilated duct in the left lateral section with narrowing of the portal vein as it goes to the area of masslike enhancement. Susceptibility is present within the common bile duct which may represent a stent or air from prior sphincterotomy. No other liver lesions are seen. There is a 2.4 x 1.2 cm soft tissue nodule associated with the capsule of the segment two of the liver (series 1204, image 47). There are also diffusion restricting omental nodules measuring up to 11 mm in the left upper quadrant. The gallbladder is absent. There is no biliary ductal dilation. Pancreas is normal. The pancreatic duct is normal. Spleen is normal. Adrenal glands are normal. The kidneys are normal. There is no hydronephrosis. Visualized bowel is normal. Lung bases are clear. No osseus lesions are seen. IMPRESSION: 1. Large area of diffusion restriction and contrast enhancement in segment 4A of the liver with focally dilated ducts in the left hemiliver and narrowing of the left portal vein. 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 2. There is also a nodule associated with the capsule of the liver in segment 2 and omental nodules in the left upper quadrant concerning for metastatic disease. Dictated by: Dictated on workstation # [id number]
== END ==
LOC: RAD 08:31
PROVIDERS: ATTEND Surgery
DX: K76.89 Other specified diseases of liver (principal); R16.0 Hepatomegaly, not elsewhere classified
CPT/HCPCS: 74183

== ENCOUNTER → 2020-10-19 | Outpatient (CLI) | payer BC ==
[~2020-10-19] MED LIST changes: -GADOBUTROL 7.5 MMOL/7.5 ML (GADAVIST) VIAL IV ONE
== END ==
LOC: LABNPT 03:05
PROVIDERS: ATTEND Nurse Practitioner Adult Health
DX: Z20.822 Contact with and (suspected) exposure to COVID-19 (principal)
CPT/HCPCS: 87635

== ENCOUNTER → 2020-10-27 | Outpatient (CLI) | payer BC | LOC: LAB 09:06 | DX: R93.89 Abnormal findings on diagnostic imaging of other specified body structures (principal) | CPT/HCPCS: 36415; 82105; 86301 ==

== ENCOUNTER 2020-11-12 15:03 | Emergency (ER) | payer OTHER ==
[~2020-11-12] VITALS: Ht 180 cm; Wt 80.0 kg
[2020-11-12] MEDS ORDERED: NS IV 1000 ML 1,000 ML IV SCH (17:30)
[2020-11-12] MEDS ORDERED: fentaNYL INJ 100 MCG/2 ML AMP IVP ONE (17:30)
[2020-11-12] MEDS ORDERED: NS 100 ML (IVPB) BAG IV ONE (17:45)
[2020-11-12] MEDS ORDERED: IOHEXOL 350 MG/ML 100 ML (OMNIPAQUE 350) VIAL IV ONE (17:45)
[2020-11-12] MEDS ORDERED: HOLD METFORMIN - RECEIVED CONTRAST 20 ML VIAL IV SCH (17:45)
[2020-11-12 17:56] LABS: BASOPHILS % (AUTO) 1 % (0-10); EOSINOPHILS # (AUTO) 0.1 10^3/uL (0.0-0.3); EOSINOPHILS % (AUTO) 2 % (0-10); HEMATOCRIT 40 % (40-54); HEMOGLOBIN 13.5 g/dL (13.3-17.7); LYMPHOCYTES # (AUTO) 1.1 10^3/uL (1.0-4.0); LYMPHOCYTES % (AUTO) 20 % (12-44); MEAN CORPUSCULAR HEMOGLOBIN 32 pg (25-34); MEAN CORPUSCULAR HGB CONC 34 g/dL (32-36); MEAN CORPUSCULAR VOLUME 94 fL (80-99); MEAN PLATELET VOLUME 10.1 fL (9.0-12.2); MONOCYTES # (AUTO) 0.4 10^3/uL (0.0-1.0); MONOCYTES % (AUTO) 8 % (0-12); NEUTROPHILS # (AUTO) 3.7 10^3/uL (1.8-7.8); NEUTROPHILS % (AUTO) 69 % (42-75); PLATELET COUNT 234 10^3/uL (130-400); WHITE BLOOD COUNT 5.4 10^3/uL (4.3-11.0)
[2020-11-12 17:57] LABS: BILIRUBIN,URINE NEGATIVE (NEGATIVE); CLARITY,URINE CLEAR; COLOR,URINE YELLOW; GLUCOSE, URINE (UA) NEGATIVE (NEGATIVE); KETONES,URINE NEGATIVE (NEGATIVE); LEUKOCYTE ESTERASE ,URINE NEGATIVE (NEGATIVE); NITRITE,URINE NEGATIVE (NEGATIVE); PROTEIN,URINE NEGATIVE (NEGATIVE)
[2020-11-12 18:05] LABS: ALBUMIN 4.2 GM/DL (3.2-4.5); POTASSIUM 3.5 MMOL/L (3.6-5.0)
[2020-11-12 18:07] LABS: CALCIUM 9.2 MG/DL (8.5-10.1)
[2020-11-12 18:08] LABS: TOTAL PROTEIN 7.5 GM/DL (6.4-8.2)
[2020-11-12 18:08] LABS: BACTERIA,URINE NEGATIVE /HPF; RBC,URINE RARE /HPF; WBC,URINE RARE /HPF
[2020-11-12 18:10] LABS: BILIRUBIN,TOTAL 0.5 MG/DL (0.1-1.0)
[2020-11-12 18:11] LABS: CREATININE SERUM 0.79 MG/DL (0.60-1.30)
--- NOTE | 2020-11-12 18:14 | Diagnostic Imaging Report ---
EXAMINATION: CT abdomen and pelvis with intravenous contrast. TECHNIQUE: Multiple contiguous axial images were obtained through the abdomen and pelvis after the uneventful administration of intravenous contrast. All CT scans use one or more of the following dose optimizing techniques: automated exposure control, MA and/or KvP adjustment based on patient size and exam type or iterative reconstruction. HISTORY: abdominal pain COMPARISON: CT abdomen and pelvis 08/29/2020 FINDINGS: Lung bases: Bibasilar dependent atelectasis. Solid organs: The liver is normal without focal lesion. The gallbladder is surgically absent. There is no biliary ductal dilation. Pancreas is normal. Spleen is normal. Adrenal glands are normal. There is new moderate left hydronephrosis and proximal hydroureter. No visualized obstructing stone is seen within the ureter. The right kidney is unremarkable. There is a slightly delayed left nephrogram. Bowel: The stomach and small bowel are normal without obstruction. There is a moderate amount of stool throughout the colon. No findings of acute appendicitis. Peritoneum: There is mild ascites. No loculated fluid collection or intra-abdominal free air. No suspicious lymphadenopathy. Vasculature: Normal without aneurysm. Musculoskeletal: No suspicious osseous lesion or compression fracture. Pelvis: The prostate gland is normal. The urinary bladder is normal. IMPRESSION: 1. New moderate left hydronephrosis and hydroureter without visualized obstructing calculus. There is a delayed nephrogram on the left kidney likely secondary to obstruction. 2. Mild ascites. Dictated by: Dictated on workstation # [id number]
--- NOTE | 2020-11-12 18:48 | ED Abdominal Pain ---
General Chief Complaint: Abdominal/GI Problems Stated Complaint: DX W/ LIVER CANCER/SCROTUM PAIN/RECTAL PAIN Nursing Triage Note: THE PT IS AMBULATORY TO THE ROOM WITHOUT DIFFICULTY. NO DISTRESS IS SEEN ON ARRIVAL. LOC IS NORMAL FOR THE PT. THE PT C/O OF ABD PAIN. History of Present Illness Date Seen by Provider: Nov 12, 2020 Time Seen by Provider: 16:24 Initial Comments 40-year-old male presents for right lower abdominal pain that has been present intermittently for the last year. He reports recently being diagnosed with liver cancer. He was treated for hepatitis C and has had his gallbladder removed in the last year. He is seeing oncology at [facility]. He has had chronic constipation. He does report a bowel movement yesterday and passing flatus today. He denies any nausea at this time but has it intermittently. He reports a 60 pound weight loss over the last year. He is on OxyContin for pain which is prescribed by his nurse practitioner Alicia Naqvi, due to his increased pain today she recommended that he have a CT of the abdomen and pelvis and be seen in the emergency department for pain control per the patient. He is reporting pain from his cholecystectomy, he has a call into Dr. Anderson about this. Timing/Duration: Intermittent Severity/Quality: Moderate Location: RUQ, RLQ Radiation: No Radiation Associated Symptoms: Denies Symptoms Allergies and Home Medications Allergies Coded Allergies: No Known Drug Allergies (Unverified , 09/16/20) Home Medications Hydrocodone/Acetaminophen 1 Each Tablet, 1-2 EACH PO Q4H PRN for PAIN- BREAKTHROUGH Prescribed by: GUTIERREZ OMER on 09/16/20 1039 Pantoprazole Sodium 40 Mg Tablet.dr, 40 MG PO DAILY Prescribed by: ADRY BENSON on 09/10/20 1525 Sofosbuvir/Velpatasvir 1 Each Tablet, 1 EACH PO DAILY, (Reported) Tamsulosin HCl 0.4 Mg Cap, 0.4 MG PO DAILY Prescribed by: LISSETTE MOMIN on 11/12/201929 Patient Home Medication List Home Medication List Reviewed: Yes Review of Systems Review of Systems Constitutional: no symptoms reported, see HPI Gastrointestinal: See HPI, Abdominal Pain; Denies Constipated, Denies Diarrhea, Denies Nausea; Poor Appetite; Denies Vomiting Past Wbaiouk-Uomnvf-Askiza Hx Immunizations Up To Date Tetanus Booster (TDap): Unknown Seasonal Allergies Seasonal Allergies: No Past Medical History Surgeries: Yes (PINS IN THE LEFT ELBOW A CHILD) Orthopedic Respiratory: No Currently Using CPAP: No Currently Using BIPAP: No Cardiac: No Neurological: No Reproductive Disorders: No Sexually Transmitted Disease: No HIV/AIDS: No Genitourinary: Yes Kidney Stones Gastrointestinal: Yes Chronic Constipation, Hepatitis, Gall Bladder Disease Musculoskeletal: No Endocrine: No HEENT: No Loss of Vision: Denies Hearing Impairment: Denies Cancer: No Psychosocial: No Integumentary: No Blood Disorders: Yes (HEP C) Adverse Reaction/Blood Tranf: No Family Medical History Reviewed Nursing Family Hx Physical Exam Vital Signs Vital Signs - First Documented 11/12/20 16:24 Temp 36.9 Pulse 65 Resp 16 B/P (MAP) 144/94 (111) Pulse Ox 98 Capillary Refill : Less Than 3 Seconds Height/Weight/BMI Height: 6'1.00" Weight: 191lbs. oz. 86.319754rn; 24.00 BMI Method:Stated General Appearance: WD/WN, no apparent distress Respiratory: chest non-tender, lungs clear, normal breath sounds Cardiovascular: normal peripheral pulses, regular rate, rhythm Gastrointestinal: normal bowel sounds, soft; No guarding, No rebound; tenderness (Right upper and lower quadrant) Extremities: normal range of motion, non-tender, normal inspection Back: normal inspection, no CVA tenderness, no vertebral tenderness; No CVA tenderness (R), No CVA tenderness (L) Neurologic/Psychiatric: no motor/sensory deficits, alert, normal mood/affect, oriented x 3 Skin: normal color, warm/dry; No jaundice Procedures/Interventions Suture Size: 5-0 Progress/Results/Core Measures Results/Orders Lab Results Laboratory Tests Test 11/12/20 11:30 11/12/20 15:10 Range/Units White Blood Count 5.4 4.3-11.0 10^3/uL Red Blood Count 4.28 L 4.30-5.52 10^6/uL Hemoglobin 13.5 13.3-17.7 g/dL Hematocrit 40 40-54 % Mean Corpuscular Volume 94 80-99 fL Mean Corpuscular Hemoglobin 32 25-34 pg Mean Corpuscular Hemoglobin Concent 34 32-36 g/dL Red Cell Distribution Width 12.1 10.0-14.5 % Platelet Count 234 130-400 10^3/uL Mean Platelet Volume 10.1 9.0-12.2 fL Immature Granulocyte % (Auto) 0 % Neutrophils (%) (Auto) 69 42-75 % Lymphocytes (%) (Auto) 20 12-44 % Monocytes (%) (Auto) 8 0-12 % Eosinophils (%) (Auto) 2 0-10 % Basophils (%) (Auto) 1 0-10 % Neutrophils # (Auto) 3.7 1.8-7.8 10^3/uL Lymphocytes # (Auto) 1.1 1.0-4.0 10^3/uL Monocytes # (Auto) 0.4 0.0-1.0 10^3/uL Eosinophils # (Auto) 0.1 0.0-0.3 10^3/uL Basophils # (Auto) 0.0 0.0-0.1 10^3/uL Immature Granulocyte # (Auto) 0.0 0.0-0.1 10^3/uL Sodium Level 142 135-145 MMOL/L Potassium Level 3.5 L 3.6-5.0 MMOL/L Chloride Level 105 98-107 MMOL/L Carbon Dioxide Level 27 21-32 MMOL/L Anion Gap 10 5-14 MMOL/L Blood Urea Nitrogen 12 7-18 MG/DL Creatinine 0.79 0.60-1.30 MG/DL Estimat Glomerular Filtration Rate 109 BUN/Creatinine Ratio 15 Glucose Level 94 70-105 MG/DL Calcium Level 9.2 8.5-10.1 MG/DL Corrected Calcium 9.0 8.5-10.1 MG/DL Total Bilirubin 0.5 0.1-1.0 MG/DL Aspartate Amino Transf (AST/SGOT) 16 5-34 U/L Alanine Aminotransferase (ALT/SGPT) 15 0-55 U/L Alkaline Phosphatase 85 40-136 U/L Total Protein 7.5 6.4-8.2 GM/DL Albumin 4.2 3.2-4.5 GM/DL Urine Color YELLOW Urine Clarity CLEAR Urine pH 6.0 5-9 Urine Specific Guy 1.015 L 1.016-1.022 Urine Protein NEGATIVE NEGATIVE Urine Glucose (UA) NEGATIVE NEGATIVE Urine Ketones NEGATIVE NEGATIVE Urine Nitrite NEGATIVE NEGATIVE Urine Bilirubin NEGATIVE NEGATIVE Urine Urobilinogen 1.0 < = 1.0 MG/DL Urine Leukocyte Esterase NEGATIVE NEGATIVE Urine RBC (Auto) NEGATIVE NEGATIVE Urine RBC RARE /HPF Urine WBC RARE /HPF Urine Squamous Epithelial Cells NONE /HPF Urine Crystals NONE /LPF Urine Bacteria NEGATIVE /HPF Urine Casts NONE /LPF Urine Mucus NEGATIVE /LPF Urine Culture Indicated NO My Orders Orders - LISSETTE MOMIN Ct Abdomen/Pelvis W (11/12/20 17:30) Cbc With Automated Diff (11/12/20 17:30) Comprehensive Metabolic Panel (11/12/20 17:30) Ua Culture If Indicated (11/12/20 17:30) Ed Iv/Invasive Line Start (11/12/20 17:30) Ns Iv 1000 Ml (Sodium Chloride 0.9%) (11/12/20 17:30) Fentanyl Inj (Sublimaze Injection) (11/12/20 17:30) Iohexol Injection (Omnipaque 350 Mg/Ml 1 (11/12/20 17:45) Received Contrast (Hold Metformin- Contr (11/12/20 17:45) Ns (Ivpb) (Sodium Chloride 0.9% Ivpb Bag (11/12/20 17:45) Tamsulosin Capsule (Flomax Capsule) (11/12/20 19:28) Medications Given in ED Current Medications Medications Dose Ordered Sig/Pat Route Start Time Stop Time Status Last Admin Dose Admin Fentanyl Citrate 50 mcg ONCE ONCE IVP 11/12/20 17:30 11/12/20 17:33 DC 11/12/20 18:13 50 MCG Iohexol 100 ml ONCE ONCE IV 11/12/20 17:45 11/12/20 17:46 DC 11/12/20 17:55 82 ML Sodium Chloride 100 ml ONCE ONCE IV 11/12/20 17:45 11/12/20 17:46 DC 11/12/20 17:55 80 ML Vital Signs/I&O 11/12/20 11/12/20 16:24 19:54 Temp 36.9 Pulse 65 65 Resp 16 16 B/P (MAP) 144/94 (111) 140/90 Pulse Ox 98 98 Blood Pressure Mean: 111 Progress Progress Note : Time: 16:24 Progress Note Patient seen and evaluated, will obtain labs, IV normal saline 1 L, CT of the abdomen and pelvis with contrast, and fentanyl 50 mcg for pain. 1734 lab results reviewed with the patient in detail. Awaiting CT. 0 Reexamined the patient he is continuing to have no pain on the left side although the CT shows left hydronephrosis. He reports a past history of possible kidney stone on the left side which he was going to have surgery for and then passed. He reports his pain has resolved since having the fentanyl. No complaints at this time. Discharge instructions and return precautions reviewed with the patient and his significant other. All questions answered. Diagnostic Imaging Diagonstic Imaging: CT Plain Films/CT/US/NM/MRI: abdomen, pelvis Comments NAME: LOGAN RUSSELL [facility] REC#: [id number] PT STATUS: REG ER : 1980 PHYSICIAN: LISSETTE MOMIN [employer] MANAGER ADMIT DATE: 11/12/20/ER Signed Date of Exam:11/12/20 CT ABDOMEN/PELVIS W EXAMINATION: CT abdomen and pelvis with intravenous contrast. TECHNIQUE: Multiple contiguous axial images were obtained through the abdomen and pelvis after the uneventful administration of intravenous contrast. All CT scans use one or more of the following dose optimizing techniques: automated exposure control, MA and/or KvP adjustment based on patient size and exam type or iterative reconstruction. HISTORY: abdominal pain COMPARISON: CT abdomen and pelvis 08/29/2020 FINDINGS: Lung bases: Bibasilar dependent atelectasis. Solid organs: The liver is normal without focal lesion. The gallbladder is surgically absent. There is no biliary ductal dilation. Pancreas is normal. Spleen is normal. Adrenal glands are normal. There is new moderate left hydronephrosis and proximal hydroureter. No visualized obstructing stone is seen within the ureter. The right kidney is unremarkable. There is a slightly delayed left nephrogram. Bowel: The stomach and small bowel are normal without obstruction. There is a moderate amount of stool throughout the colon. No findings of acute appendicitis. Peritoneum: There is mild ascites. No loculated fluid collection or intra-abdominal free air. No suspicious lymphadenopathy. Vasculature: Normal without aneurysm. Musculoskeletal: No suspicious osseous lesion or compression fracture. Pelvis: The prostate gland is normal. The urinary bladder is normal. IMPRESSION: 1. New moderate left hydronephrosis and hydroureter without visualized obstructing calculus. There is a delayed nephrogram on the left kidney likely secondary to obstruction. 2. Mild ascites. Dictated by: Dictated on workstation # [id number] Dict: 11/12/201803 Trans: 11/12/201837 [facility] [id number] Interpreted by: ANUP MOORE DO Electronically signed by: ANUP MOORE DO 11/12/201837 Reviewed: Reviewed by Me Departure Impression Primary Impression: Abdominal pain Qualified Codes: R10.31 - Right lower quadrant pain Additional Impression: Hydronephrosis, left Disposition: 01 HOME, SELF-CARE Condition: Improved Departure-Patient Inst. Decision time for Depature: 18:50 Referrals: [facility] [place] (PCP/Family) Primary Care Physician Patient Instructions: Hydronephrosis, Adult (DC) Add. Discharge Instructions: Continue your pain medication as prescribed by your primary care provider. Increase water intake, 16 ounces every 2 hours while awake. Use the Flomax as prescribed. Take your CT results to your oncology appointment at [facility]. Return to the emergency department for new, urgent healthcare needs. All discharge instructions reviewed with patient and/or family. Voiced understanding. Scripts Tamsulosin HCl (Flomax) 0.4 Mg Cap 0.4 MG PO DAILY, #20 CAP 0 Refills Prov: LISSETTE MOMIN 11/12/20 LISSETTE MOMIN Nov 12, 2020 18:48
[2020-11-12] MEDS ORDERED: TAMSULOSIN 0.4 MG (FLOMAX) CAP PO STA (19:28)
[2020-11-12] MEDS ORDERED: TMSL.4C PO (19:30)
[2020-11-12 19:54] VITALS: BP 140/90
== END 2020-11-12 19:55 | disposition home or self-care (01) ==
LOC: EDUNIT# 15:03 → ER 15:05
DX: C22.9 Malignant neoplasm of liver, not specified as primary or secondary (principal); N13.30 Unspecified hydronephrosis
CPT/HCPCS: 36415; 74177; 80053; 81000; 85025

== ENCOUNTER → 2020-11-17 | Outpatient (CLI) | payer OTHER ==
[~2020-11-17] MED LIST changes: +TMSL.4C PO
== END ==
LOC: LABNPT 08:00
PROVIDERS: ATTEND Radiology Diagnostic Radiology
DX: Z20.822 Contact with and (suspected) exposure to COVID-19 (principal)
CPT/HCPCS: 87635

== ENCOUNTER 2020-11-27 15:47 | Emergency (ER) | payer OTHER ==
[~2020-11-27] VITALS: Ht 177.8 cm; Wt 67.0 kg
[2020-11-27] MEDS ORDERED: fentaNYL INJ 100 MCG/2 ML AMP IVP ONE (16:45)
[2020-11-27 16:53] LABS: BASOPHILS % (AUTO) 1 % (0-10); EOSINOPHILS # (AUTO) 0.2 10^3/uL (0.0-0.3); EOSINOPHILS % (AUTO) 4 % (0-10); HEMATOCRIT 37 % (40-54); HEMOGLOBIN 12.9 g/dL (13.3-17.7); LYMPHOCYTES % (AUTO) 20 % (12-44); MEAN CORPUSCULAR HEMOGLOBIN 32 pg (25-34); MEAN CORPUSCULAR HGB CONC 35 g/dL (32-36); MEAN CORPUSCULAR VOLUME 91 fL (80-99); MEAN PLATELET VOLUME 9.6 fL (9.0-12.2); MONOCYTES # (AUTO) 0.4 10^3/uL (0.0-1.0); MONOCYTES % (AUTO) 9 % (0-12); NEUTROPHILS # (AUTO) 3.2 10^3/uL (1.8-7.8); NEUTROPHILS % (AUTO) 67 % (42-75); PLATELET COUNT 194 10^3/uL (130-400); WHITE BLOOD COUNT 4.8 10^3/uL (4.3-11.0)
--- NOTE | 2020-11-27 16:53 | ED Abdominal Pain ---
General Chief Complaint: Abdominal/GI Problems Stated Complaint: ABDOMINAL PAIN Nursing Triage Note: AMB TO ROOM WITH PATIENT REPORTS HAS LIVER CANCER. HAD BIOPSY ON SUN AT [facility] HAS HAD ABD PAIN BUT MORE INTENSE. HAVE CHANGED HIS PAIN MEDS FROM OXYCODONE TO HYDROCODONE Source of Information: Patient Exam Limitations: No Limitations History of Present Illness Date Seen by Provider: Nov 27, 2020 Time Seen by Provider: 16:52 Initial Comments To ER with reports of diffuse abdominal pain. He had a liver biopsy at the [facility] on Sunday. States that he has liver cancer. No fevers or chills. Timing/Duration: 1-2 Days Severity/Quality: Moderate Location: Generalized Abdomen Radiation: No Radiation Activities at Onset: None Associated Symptoms: Denies Symptoms Allergies and Home Medications Allergies Coded Allergies: No Known Drug Allergies (Unverified , 09/16/20) Home Medications Hydrocodone/Acetaminophen 1 Each Tablet, 1-2 EACH PO Q4H PRN for PAIN-BREAK THROUGH Prescribed by: GUTIERREZ OMER on 09/16/20 1039 Pantoprazole Sodium 40 Mg Tablet.dr, 40 MG PO DAILY Prescribed by: ADRY BENSON on 09/10/20 1525 Sofosbuvir/Velpatasvir 1 Each Tablet, 1 EACH PO DAILY, (Reported) Tamsulosin HCl 0.4 Mg Cap, 0.4 MG PO DAILY Prescribed by: LISSETTE MOMIN on 11/12/20 1930 Patient Home Medication List Home Medication List Reviewed: Yes Review of Systems Review of Systems Constitutional: see HPI; No chills, No fever EENTM: No Symptoms Reported Respiratory: No Symptoms Reported Cardiovascular: No Symptoms Reported Gastrointestinal: See HPI, Abdominal Pain, Nausea Genitourinary: No Symptoms Reported Musculoskeletal: no symptoms reported Skin: no symptoms reported Psychiatric/Neurological: No Symptoms Reported Endocrine: No Symptoms Reported Hematologic/Lymphatic: No Symptoms Reported Past Uqgarcl-Xqmhcq-Efdcnn Hx Patient Social History Tobacco Use?: Yes Substance use?: Yes Substance type: Marijuana Pt feels they are or have been: No Immunizations Up To Date Tetanus Booster (TDap): Unknown Seasonal Allergies Seasonal Allergies: No Past Medical History Surgery/Hospitalization HX: LIVER BIOSBY Surgeries: Yes (PINS IN THE LEFT ELBOW A CHILD) Orthopedic Respiratory: No Currently Using CPAP: No Currently Using BIPAP: No Cardiac: No Neurological: No Reproductive Disorders: No Sexually Transmitted Disease: No HIV/AIDS: No Genitourinary: Yes Kidney Stones Gastrointestinal: Yes Chronic Constipation, Hepatitis, Gall Bladder Disease Musculoskeletal: No Endocrine: No HEENT: No Loss of Vision: Denies Hearing Impairment: Denies Cancer: No Psychosocial: No Integumentary: No Blood Disorders: Yes (HEP C) Adverse Reaction/Blood Tranf: No Physical Exam Vital Signs Vital Signs - First Documented 11/27/20 15:54 Pulse 75 Resp 18 B/P (MAP) 138/93 (108) Pulse Ox 98 O2 Delivery Room Air Capillary Refill : Less Than 3 Seconds Height/Weight/BMI Height: 6'1.00" Weight: 191lbs. oz. 86.476437hm; 21.00 BMI Method:Stated General Appearance: WD/WN, no apparent distress HEENT: PERRL/EOMI, normal ENT inspection Respiratory: no respiratory distress, no accessory muscle use Cardiovascular: regular rate, rhythm, no murmur Gastrointestinal: normal bowel sounds, soft Extremities: normal range of motion, non-tender Neurologic/Psychiatric: alert, normal mood/affect, oriented x 3 Skin: normal color, warm/dry Procedures/Interventions Suture Size: 5-0 Progress/Results/Core Measures Results/Orders Lab Results Laboratory Tests Test 11/27/20 16:42 Range/Units White Blood Count 4.8 4.3-11.0 10^3/uL Red Blood Count 4.10 L 4.30-5.52 10^6/uL Hemoglobin 12.9 L 13.3-17.7 g/dL Hematocrit 37 L 40-54 % Mean Corpuscular Volume 91 80-99 fL Mean Corpuscular Hemoglobin 32 25-34 pg Mean Corpuscular Hemoglobin Concent 35 32-36 g/dL Red Cell Distribution Width 11.9 10.0-14.5 % Platelet Count 194 130-400 10^3/uL Mean Platelet Volume 9.6 9.0-12.2 fL Immature Granulocyte % (Auto) 0 % Neutrophils (%) (Auto) 67 42-75 % Lymphocytes (%) (Auto) 20 12-44 % Monocytes (%) (Auto) 9 0-12 % Eosinophils (%) (Auto) 4 0-10 % Basophils (%) (Auto) 1 0-10 % Neutrophils # (Auto) 3.2 1.8-7.8 10^3/uL Lymphocytes # (Auto) 1.0 1.0-4.0 10^3/uL Monocytes # (Auto) 0.4 0.0-1.0 10^3/uL Eosinophils # (Auto) 0.2 0.0-0.3 10^3/uL Basophils # (Auto) 0.0 0.0-0.1 10^3/uL Immature Granulocyte # (Auto) 0.0 0.0-0.1 10^3/uL Prothrombin Time 14.6 12.2-14.7 SEC INR Comment 1.1 0.8-1.4 Sodium Level 143 135-145 MMOL/L Potassium Level 3.7 3.6-5.0 MMOL/L Chloride Level 105 98-107 MMOL/L Carbon Dioxide Level 25 21-32 MMOL/L Anion Gap 13 5-14 MMOL/L Blood Urea Nitrogen 14 7-18 MG/DL Creatinine 0.87 0.60-1.30 MG/DL Estimat Glomerular Filtration Rate 97 BUN/Creatinine Ratio 16 Glucose Level 99 70-105 MG/DL Calcium Level 9.1 8.5-10.1 MG/DL Corrected Calcium 9.2 8.5-10.1 MG/DL Total Bilirubin 0.4 0.1-1.0 MG/DL Aspartate Amino Transf (AST/SGOT) 18 5-34 U/L Alanine Aminotransferase (ALT/SGPT) 18 0-55 U/L Alkaline Phosphatase 93 40-136 U/L Total Protein 6.8 6.4-8.2 GM/DL Albumin 3.9 3.2-4.5 GM/DL My Orders Orders - ANAHI BISHOP PECAN GROWER Cbc With Automated Diff (11/27/20 16:43) Comprehensive Metabolic Panel (11/27/20 16:43) Protime With Inr (11/27/20 16:43) Ct Abdomen/Pelvis W (11/27/20 16:43) Fentanyl Inj (Sublimaze Injection) (11/27/20 16:45) Iohexol Injection (Omnipaque 350 Mg/Ml 1 (11/27/20 17:15) Received Contrast (Hold Metformin- Contr (11/27/20 17:15) Ns (Ivpb) (Sodium Chloride 0.9% Ivpb Bag (11/27/20 17:15) Medications Given in ED Current Medications Medications Dose Ordered Sig/Pat Route Start Time Stop Time Status Last Admin Dose Admin Fentanyl Citrate 75 mcg ONCE ONCE IVP 11/27/20 16:45 11/27/20 16:46 DC 11/27/20 16:52 75 MCG Iohexol 100 ml ONCE ONCE IV 11/27/20 17:15 11/27/20 17:16 DC 11/27/20 17:50 84 ML Sodium Chloride 100 ml ONCE ONCE IV 11/27/20 17:15 11/27/20 17:16 DC 11/27/20 17:50 80 ML Vital Signs/I&O 11/27/20 15:54 Pulse 75 Resp 18 B/P (MAP) 138/93 (108) Pulse Ox 98 O2 Delivery Room Air Blood Pressure Mean: 108 Departure Communication (Admissions) Biopsy results from [facility] on 11/24/20: Liver, mass, core biopsy: Moderately differentiated adenocarcinoma, NAME: LOGAN RUSSELL [facility] REC#: [id number] PT STATUS: REG ER : 1980 PHYSICIAN: ANAHI BISHOP APRN ADMIT DATE: 11/27/20/ER Draft Date of Exam:11/27/20 CT ABDOMEN/PELVIS W INDICATION: Abdominal pain, history of liver biopsy of three days prior and history of previous cholecystectomy. TECHNIQUE: Multiple contiguous axial images were obtained through the abdomen and pelvis after administration of intravenous contrast. Auto Exposure Controls were utilized during the CT exam to meet ALARA standards for radiation dose reduction. All CT scans use one or more of the following dose optimizing techniques: automated exposure control, MA and/or KvP adjustment based on patient size and exam type or iterative reconstruction. COMPARISON: 11/12/2020. FINDINGS: The visualized portions of the lung bases are clear. There is no pleural fluid collection. There is no free intraperitoneal air. The liver shows moderate inhomogeneity with unchanged low-density changes along the falciform ligament which may represent fatty change. There is no evidence of hematoma post recent liver biopsy. The patient does have a small amount of free fluid around the liver which appears similar to the previous study. Spleen was borderline in size. The adrenals and pancreas are normal. The kidneys, bilaterally, show no intraparenchymal lesion. There appears to be asymmetric enhancement of the left kidney showing decreased enhancement. There is unchanged left hydronephrosis. Visualized loops of bowel show large a amount of stool throughout the colon. There is no overt bowel obstruction. IMPRESSION: Compared to the previous study of 11/12/2020, there is no significant change. Patient apparently has had a liver biopsy since the prior study, there is no hematoma of the liver and there is no change in the small amount of free fluid around the liver. There continues to be decreased enhancement of the left kidney compared to the right with hydronephrosis of uncertain cause, this has not changed compared to the prior study. Dictated on workstation # [id number] Dict: 11/27/20 1733 Trans: 11/27/20 1805 [facility] [id number] Interpreted by: GERALD THACKER MD Electronically signed by: Impression Primary Impression: Post-op pain Disposition: 01 HOME, SELF-CARE Condition: Stable Departure-Patient Inst. Decision time for Depature: 18:11 Referrals: [facility] [place] (PCP/Family) Primary Care Physician Patient Instructions: Managing Pain After Surgery Add. Discharge Instructions: Use the oxycodone instead of the hydrocodone, do not mix them or take them both together. All discharge instructions reviewed with patient and/or family. Voiced understanding. Scripts Oxycodone HCl (Oxycodone HCl) 10 Mg Tablet 10 MG PO Q6H PRN for PAIN-MODERATE (5-7) for 7 Days, #14 TAB Prov: ANAHI BISHOP APRN 11/27/20 ANAHI BISHOP APRN Nov 27, 2020 16:53
[2020-11-27 17:02] LABS: ALBUMIN 3.9 GM/DL (3.2-4.5); POTASSIUM 3.7 MMOL/L (3.6-5.0)
[2020-11-27 17:03] LABS: CALCIUM 9.1 MG/DL (8.5-10.1); INR 1.1 (0.8-1.4); PROTHROMBIN TIME PATIENT 14.6 SEC (12.2-14.7)
[2020-11-27 17:05] LABS: TOTAL PROTEIN 6.8 GM/DL (6.4-8.2)
[2020-11-27 17:07] LABS: BILIRUBIN,TOTAL 0.4 MG/DL (0.1-1.0)
[2020-11-27 17:08] LABS: CREATININE SERUM 0.87 MG/DL (0.60-1.30)
[2020-11-27] MEDS ORDERED: HOLD METFORMIN - RECEIVED CONTRAST 20 ML VIAL IV SCH (17:15)
[2020-11-27] MEDS ORDERED: IOHEXOL 350 MG/ML 100 ML (OMNIPAQUE 350) VIAL IV ONE (17:15)
[2020-11-27] MEDS ORDERED: NS 100 ML (IVPB) BAG IV ONE (17:15)
--- NOTE | 2020-11-27 18:06 | Diagnostic Imaging Report ---
INDICATION: Abdominal pain, history of liver biopsy of three days prior and history of previous cholecystectomy. TECHNIQUE: Multiple contiguous axial images were obtained through the abdomen and pelvis after administration of intravenous contrast. Auto Exposure Controls were utilized during the CT exam to meet ALARA standards for radiation dose reduction. All CT scans use one or more of the following dose optimizing techniques: automated exposure control, MA and/or KvP adjustment based on patient size and exam type or iterative reconstruction. COMPARISON: 11/12/2020. FINDINGS: The visualized portions of the lung bases are clear. There is no pleural fluid collection. There is no free intraperitoneal air. The liver shows moderate inhomogeneity with unchanged low-density changes along the falciform ligament which may represent fatty change. There is no evidence of hematoma post recent liver biopsy. The patient does have a small amount of free fluid around the liver which appears similar to the previous study. Spleen was borderline in size. The adrenals and pancreas are normal. The kidneys, bilaterally, show no intraparenchymal lesion. There appears to be asymmetric enhancement of the left kidney showing decreased enhancement. There is unchanged left hydronephrosis. Visualized loops of bowel show large a amount of stool throughout the colon. There is no overt bowel obstruction. IMPRESSION: Compared to the previous study of 11/12/2020, there is no significant change. Patient apparently has had a liver biopsy since the prior study, there is no hematoma of the liver and there is no change in the small amount of free fluid around the liver. There continues to be decreased enhancement of the left kidney compared to the right with hydronephrosis of uncertain cause, this has not changed compared to the prior study. Dictated by: Dictated on workstation # [id number]
[2020-11-27] MEDS ORDERED: OXYC10TA7 PO (18:12)
[2020-11-27 18:21] VITALS: BP 133/92
== END 2020-11-27 18:21 | disposition home or self-care (01) ==
LOC: EDUNIT# 15:47 → ER 15:49
DX: C22.9 Malignant neoplasm of liver, not specified as primary or secondary (principal); G89.18 Other acute postprocedural pain
CPT/HCPCS: 36415; 74177; 80053; 85025; 85610; 96374

== ENCOUNTER 2020-12-01 09:43 | Emergency (ER) | payer OTHER ==
[~2020-12-01] VITALS: Ht 180 cm; Wt 63.0 kg
[~2020-12-01 09:43] MED LIST changes: +OXYC10TA7 PO
[2020-12-01 10:29] LABS: BASOPHILS # (AUTO) 0.1 10^3/uL (0.0-0.1); BASOPHILS % (AUTO) 1 % (0-10); EOSINOPHILS # (AUTO) 0.2 10^3/uL (0.0-0.3); EOSINOPHILS % (AUTO) 3 % (0-10); HEMATOCRIT 40 % (40-54); HEMOGLOBIN 14.1 g/dL (13.3-17.7); LYMPHOCYTES # (AUTO) 1.1 10^3/uL (1.0-4.0); LYMPHOCYTES % (AUTO) 17 % (12-44); MEAN CORPUSCULAR HEMOGLOBIN 32 pg (25-34); MEAN CORPUSCULAR HGB CONC 36 g/dL (32-36); MEAN CORPUSCULAR VOLUME 91 fL (80-99); MEAN PLATELET VOLUME 10.4 fL (9.0-12.2); MONOCYTES # (AUTO) 0.5 10^3/uL (0.0-1.0); MONOCYTES % (AUTO) 7 % (0-12); NEUTROPHILS # (AUTO) 4.6 10^3/uL (1.8-7.8); NEUTROPHILS % (AUTO) 72 % (42-75); PLATELET COUNT 241 10^3/uL (130-400); WHITE BLOOD COUNT 6.4 10^3/uL (4.3-11.0)
[2020-12-01] MEDS ORDERED: fentaNYL INJ 100 MCG/2 ML AMP IVP ONE (10:30)
[2020-12-01 10:34] LABS: ALBUMIN 4.3 GM/DL (3.2-4.5); POTASSIUM 3.7 MMOL/L (3.6-5.0)
[2020-12-01 10:35] LABS: BILIRUBIN,URINE NEGATIVE (NEGATIVE); CALCIUM 9.6 MG/DL (8.5-10.1); CLARITY,URINE CLEAR; COLOR,URINE YELLOW; GLUCOSE, URINE (UA) NEGATIVE (NEGATIVE); KETONES,URINE NEGATIVE (NEGATIVE); LEUKOCYTE ESTERASE ,URINE NEGATIVE (NEGATIVE); NITRITE,URINE NEGATIVE (NEGATIVE); PROTEIN,URINE NEGATIVE (NEGATIVE)
[2020-12-01 10:37] LABS: TOTAL PROTEIN 7.6 GM/DL (6.4-8.2)
[2020-12-01 10:38] LABS: BILIRUBIN,TOTAL 0.5 MG/DL (0.1-1.0)
[2020-12-01 10:40] LABS: CREATININE SERUM 0.9 MG/DL (0.60-1.30)
--- NOTE | 2020-12-01 10:49 | ED GI ---
General Chief Complaint: Abdominal/GI Problems Stated Complaint: GROIN PAIN Nursing Triage Note: ARRIVED VIA AMB TO ROOM 08 WITH ABD PAIN. HX OF LIVER AND HAS BEEN SEEN HERE SEVERAL TIMES OVER THE LAST COUPLE OF WEEKS. STATES HE IS ON HYDROCODONE AND IS NOT HELPING. Source of Information: Patient, Family Exam Limitations: No Limitations (SANDRA HAWLEY,MED STUDENT) History of Present Illness Date Seen by Provider: Dec 01, 2020 Time Seen by Provider: 10:24 Initial Comments Morales Piña is a 40yo M with PMH of liver cancer who presents with CC of groin pain. He states that at 1AM he began to have diffuse abdominal pain accompanied by pain that radiates to his groin and scrotum. Both testicles are affected equally. The pain has been constant and severe. He has recently had difficulties with BMs, producing little stool even though he has urgency; he has had rectal prolapse which began this AM as well. He denies fever, chest pain, and SOB. Timing/Duration: 4-6 Hours Severity/Quality: Severe Location: Generalized Abdomen Radiation: Groin Activities at Onset: None Associated Symptoms: Denies Symptoms (SANDRA HAWLEY,MED STUDENT) Allergies and Home Medications Allergies Coded Allergies: No Known Drug Allergies (Unverified , 09/16/20) Home Medications Hydrocodone/Acetaminophen 1 Each Tablet, 1-2 EACH PO Q4H PRN for PAIN-BREAKTHROU GH Prescribed by: GUTIERREZ OMER on 09/16/20 1039 Oxycodone HCl 10 Mg Tablet, 10 MG PO Q6H PRN for PAIN-MODERATE (5-7) Prescribed by: ANAHI BISHOP on 11/27/20 1812 Oxycodone HCl 10 Mg Tablet, 10 MG PO Q6H PRN for PAIN-BREAKTHROUGH Prescribed by: AGATHA SHAIKH on 12/01/20 1254 Pantoprazole Sodium 40 Mg Tablet.dr, 40 MG PO DAILY Prescribed by: ADRY BENSON on 09/10/20 1525 Sofosbuvir/Velpatasvir 1 Each Tablet, 1 EACH PO DAILY, (Reported) Tamsulosin HCl 0.4 Mg Cap, 0.4 MG PO DAILY Prescribed by: LISSETTE MOMIN on 11/12/20 1930 Patient Home Medication List Home Medication List Reviewed: Yes (AGATHA NUÑEZ MD) Review of Systems Review of Systems Constitutional: see HPI EENTM: No Symptoms Reported Respiratory: No Symptoms Reported Cardiovascular: No Symptoms Reported Gastrointestinal: Abdominal Pain; Denies Blood Streaked Stools, Denies Vomiting Genitourinary: No Symptoms Reported Musculoskeletal: no symptoms reported Skin: no symptoms reported Psychiatric/Neurological: No Symptoms Reported Endocrine: No Symptoms Reported Hematologic/Lymphatic: No Symptoms Reported (SANDRA HAWLEY,AYLA STUDENT) Past Uowkrwj-Kkyqol-Wwwchi Hx Immunizations Up To Date Tetanus Booster (TDap): Unknown (SANDRA HAWLEY,AYLA STUDENT) Seasonal Allergies Seasonal Allergies: No (SANDRA HAWLEY,AYLA MARIE) Past Medical History Surgery/Hospitalization HX: LIVER BIOSBY Surgeries: Yes (PINS IN THE LEFT ELBOW A CHILD) Orthopedic Respiratory: No Currently Using CPAP: No Currently Using BIPAP: No Cardiac: No Neurological: No Reproductive Disorders: No Sexually Transmitted Disease: No HIV/AIDS: No Genitourinary: Yes Kidney Stones Gastrointestinal: Yes Chronic Constipation, Hepatitis, Gall Bladder Disease Musculoskeletal: No Endocrine: No HEENT: No Loss of Vision: Denies Hearing Impairment: Denies Cancer: No Psychosocial: No Integumentary: No Blood Disorders: Yes (HEP C) Adverse Reaction/Blood Tranf: No (SANDRA HAWLEY,MED STUDENT) Physical Exam Vital Signs Vital Signs - First Documented 12/01/20 09:50 Temp 36.0 Pulse 88 Resp 16 B/P (MAP) 139/101 (114) Pulse Ox 97 O2 Delivery Room Air (AGATHA NUÑEZ MD) Vital Signs Capillary Refill : Less Than 3 Seconds (SANDRA HAWLEY,MED STUDENT) Height/Weight/BMI Height: 6'1.00" Weight: 191lbs. oz. [id number]; 19.00 BMI Method:Stated General Appearance: moderate distress HEENT: PERRL/EOMI Neck: normal inspection Respiratory: lungs clear, normal breath sounds Cardiovascular: normal peripheral pulses, regular rate, rhythm Gastrointestinal: normal bowel sounds, guarding, tenderness Rectal: deferred Extremities: normal range of motion Neurologic/Psychiatric: alert, normal mood/affect, oriented x 3 Skin: normal color, warm/dry (SANDRA HAWLEY,MED STUDENT) Procedures/Interventions Suture Size: 5-0 (SANDRA HAWLEY,MED STUDENT) Progress/Results/Core Measures Results/Orders Lab Results Laboratory Tests Test 12/01/20 10:00 Range/Units White Blood Count 6.4 4.3-11.0 10^3/uL Red Blood Count 4.38 4.30-5.52 10^6/uL Hemoglobin 14.1 13.3-17.7 g/dL Hematocrit 40 40-54 % Mean Corpuscular Volume 91 80-99 fL Mean Corpuscular Hemoglobin 32 25-34 pg Mean Corpuscular Hemoglobin Concent 36 32-36 g/dL Red Cell Distribution Width 11.9 10.0-14.5 % Platelet Count 241 130-400 10^3/uL Mean Platelet Volume 10.4 9.0-12.2 fL Immature Granulocyte % (Auto) 0 % Neutrophils (%) (Auto) 72 42-75 % Lymphocytes (%) (Auto) 17 12-44 % Monocytes (%) (Auto) 7 0-12 % Eosinophils (%) (Auto) 3 0-10 % Basophils (%) (Auto) 1 0-10 % Neutrophils # (Auto) 4.6 1.8-7.8 10^3/uL Lymphocytes # (Auto) 1.1 1.0-4.0 10^3/uL Monocytes # (Auto) 0.5 0.0-1.0 10^3/uL Eosinophils # (Auto) 0.2 0.0-0.3 10^3/uL Basophils # (Auto) 0.1 0.0-0.1 10^3/uL Immature Granulocyte # (Auto) 0.0 0.0-0.1 10^3/uL Urine Color YELLOW Urine Clarity CLEAR Urine pH 6.0 5-9 Urine Specific [place] 1.015 L 1.016-1.022 Urine Protein NEGATIVE NEGATIVE Urine Glucose (UA) NEGATIVE NEGATIVE Urine Ketones NEGATIVE NEGATIVE Urine Nitrite NEGATIVE NEGATIVE Urine Bilirubin NEGATIVE NEGATIVE Urine Urobilinogen 0.2 < = 1.0 MG/DL Urine Leukocyte Esterase NEGATIVE NEGATIVE Urine RBC (Auto) NEGATIVE NEGATIVE Urine RBC NONE /HPF Urine WBC RARE /HPF Urine Squamous Epithelial Cells 0-2 /HPF Urine Crystals NONE /LPF Urine Bacteria TRACE /HPF Urine Casts NONE /LPF Urine Mucus SMALL H /LPF Urine Culture Indicated NO Sodium Level 142 135-145 MMOL/L Potassium Level 3.7 3.6-5.0 MMOL/L Chloride Level 106 98-107 MMOL/L Carbon Dioxide Level 23 21-32 MMOL/L Anion Gap 13 5-14 MMOL/L Blood Urea Nitrogen 17 7-18 MG/DL Creatinine 0.90 0.60-1.30 MG/DL Estimat Glomerular Filtration Rate 93 BUN/Creatinine Ratio 19 Glucose Level 105 70-105 MG/DL Calcium Level 9.6 8.5-10.1 MG/DL Corrected Calcium 9.4 8.5-10.1 MG/DL Total Bilirubin 0.5 0.1-1.0 MG/DL Aspartate Amino Transf (AST/SGOT) 19 5-34 U/L Alanine Aminotransferase (ALT/SGPT) 15 0-55 U/L Alkaline Phosphatase 92 40-136 U/L C-Reactive Protein High Sensitivity 0.05 0.00-0.50 MG/DL Total Protein 7.6 6.4-8.2 GM/DL Albumin 4.3 3.2-4.5 GM/DL Lipase 38 8-78 U/L (AGATHA NUÑEZ MD) My Orders Orders - AGATHA NUÑEZ MD Cbc With Automated Diff (12/01/20 10:22) Comprehensive Metabolic Panel (12/01/20 10:22) Hs C Reactive Protein (12/01/20 10:22) Lipase (12/01/20 10:22) Ua Culture If Indicated (12/01/20 10:22) Ed Iv/Invasive Line Start (12/01/20 10:22) Fentanyl Inj (Sublimaze Injection) (12/01/20 10:30) Ketorolac Injection (Toradol Injection) (12/01/20 11:45) Morphine Injection (Morphine Injection (12/01/20 11:40) (AGATHA NUÑEZ MD) Medications Given in ED Current Medications Medications Dose Ordered Sig/Pat Route Start Time Stop Time Status Last Admin Dose Admin Fentanyl Citrate 50 mcg ONCE ONCE IVP 12/01/20 10:30 12/01/20 10:31 DC 12/01/20 10:48 50 MCG Ketorolac Tromethamine 30 mg ONCE ONCE IVP 12/01/20 11:45 12/01/20 11:46 DC 12/01/20 11:51 30 MG (AGATHA NUÑEZ MD) Vital Signs/I&O 12/01/20 12/01/20 09:50 13:06 Temp 36.0 Pulse 88 65 Resp 16 16 B/P (MAP) 139/101 (114) 149/85 Pulse Ox 97 98 O2 Delivery Room Air Room Air (AGATHA NUÑEZ MD) Blood Pressure Mean: 114 Progress Progress Note : Progress Note Patient complained of a generalized abdominal pain radiating into the back, inguinal regions, and into the scrotum. None of this pain is actually new and has been present for months. It has intensified in recent days however. He has had thorough work-ups in the past including multiple CT scans. He is to review pathology results at a follow-up appointment on Sunday after having his liver biopsy at [facility] last week. He states the OxyContin long-acting medication did no t work well for controlling his pain. His reports that they destroyed the remaining doses as they did not feel it was effective. He reports oxycodone short acting tablets were more effective. He is afebrile and denies any new acute symptoms of infectious illness such as fever, cough, etc. Labs were relatively unremarkable. Patient was treated with fentanyl initially and that was not very effective. He was then treated with Toradol and morphine which did satisfactorily control his pain. Exam: General: Alert, oriented, very uncomfortable and sometimes writhing in pain, well developed, thin HEENT: Normocephalic and atraumatic Heart: Regular rate and rhythm without murmur Lungs: Clear to auscultation bilaterally with normal effort Abdomen: Soft, generalized tenderness, nondistended, normal bowel sounds Neuropsych: Alert, oriented, no focal deficits Skin: Warm and dry without rashes Medical Student Attestation and Attending Note: I have personally interviewed and examined this patient along with Vinnie Hawley, MS 4. I have reviewed student documentation including history, physical, and assessments. I agree with the documentation except where otherwise noted. (AGATHA NUÑEZ MD) Departure Impression Primary Impression: Chronic pain Qualified Codes: G89.3 - Neoplasm related pain (acute) (chronic) Additional Impression: Liver cancer Qualified Codes: C22.9 - Malignant neoplasm of liver, not specified as primary or secondary Disposition: HOME, SELF-CARE Condition: Improved Departure-Patient Inst. Referrals: [facility] (PCP/Family) Primary Care Physician Patient Instructions: Liver Cancer, Chronic Pain Add. Discharge Instructions: Use ibuprofen up to 600 mg every 6 hours as needed for primary pain control. Add your oxycodone as prescribed for breakthrough pain. Follow-up with your primary care provider and your cancer team for further chronic pain management. Return to the ER if you have worsening symptoms, especially if you develop fevers, vomiting, or other acute issues. You may call with questions or concerns. It may be mojica to take a stool softener such as Colace while on opioid pain medications to prevent constipation. All discharge instructions reviewed with patient and/or family. Voiced understanding. Scripts Oxycodone HCl (Oxycodone HCl) 10 Mg Tablet 10 MG PO Q6H PRN for PAIN-BREAKTHROUGH, #20 TAB Prov: AGATHA NUÑEZ MD 12/01/20 Copy Copies To 1: ALEJANDRO MARIA ALEXANDER E,MED STUDENT Dec 01, 2020 10:49 AGATHA NUÑEZ MD Dec 01, 2020 12:55
[2020-12-01 10:51] LABS: BACTERIA,URINE TRACE /HPF; SQUAMOUS EPITHELIAL CELL,UR 0-2 /HPF; WBC,URINE RARE /HPF
[2020-12-01] MEDS ORDERED: morphine INJ 10 MG/ML 1ML (SYR OR VIAL) IVP STA (11:40)
[2020-12-01] MEDS ORDERED: KETOROLAC 30 MG/ML VIAL IVP ONE (11:45)
[2020-12-01] MEDS ORDERED: OXYC10TA7 PO (12:53)
[2020-12-01 13:06] VITALS: BP 149/85
== END 2020-12-01 13:06 | disposition home or self-care (01) ==
LOC: EDUNIT# 09:43 → ER 09:44
DX: G89.29 Other chronic pain (principal); R10.84 Generalized abdominal pain; C22.9 Malignant neoplasm of liver, not specified as primary or secondary; Z87.442 Personal history of urinary calculi; Z79.891 Long term (current) use of opiate analgesic
CPT/HCPCS: 36415; 80053; 81000; 83690; 85025; 86141

== ENCOUNTER 2020-12-10 11:02 | Emergency (ER) | payer OTHER ==
[~2020-12-10] VITALS: Ht 180 cm; Wt 60.3 kg
--- NOTE | 2020-12-10 11:59 | ED General ---
General Stated Complaint: SEVERE ABD PAIN, L BACK PAIN Source of Information: Patient Exam Limitations: No Limitations (ANAHI BISHOP APRN) History of Present Illness Date Seen by Provider: Dec 10, 2020 Time Seen by Provider: 11:57 Initial Comments To ER with reports of severe right upper quadrant and right mid back pain. He recently had a port placed at the [facility] for a recently diagnosed cholangiocarcinoma. He is on morphine daily and oxycodone for breakthrough pain. He is out of the oxycodone. No fevers or chills. Timing/Duration: 1-2 Days Severity: Moderate Associated Systoms: Nausea/Vomiting (ANAHI BISHOP APRN) Allergies and Home Medications Allergies Coded Allergies: No Known Drug Allergies (Unverified , 09/16/20) Home Medications Hydrocodone/Acetaminophen 1 Each Tablet, 1-2 EACH PO Q4H PRN for PAIN- BREAKTHROUGH Prescribed by: GUTIERREZ OMER on 09/16/20 1039 Oxycodone HCl 10 Mg Tablet, 10 MG PO Q6H PRN for PAIN-MODERATE (5-7) Prescribed by: ANAHI BISHOP on 11/27/20 1812 Oxycodone HCl 10 Mg Tablet, 10 MG PO Q6H PRN for PAIN-BREAKTHROUGH Prescribed by: AGATHA SHAIKH on 12/01/20 1254 Oxycodone HCl 10 Mg Tablet, 10 MG PO Q6H PRN for PAIN-MODERATE (5-7) Prescribed by: ANAHI BISHOP on 12/10/20 1332 Pantoprazole Sodium 40 Mg Tablet.dr, 40 MG PO DAILY Prescribed by: ADRY BENSON on 09/10/20 1525 Sofosbuvir/Velpatasvir 1 Each Tablet, 1 EACH PO DAILY, (Reported) Tamsulosin HCl 0.4 Mg Cap, 0.4 MG PO DAILY Prescribed by: LISSETTE MOMIN on 11/12/20 1930 Patient Home Medication List Home Medication List Reviewed: Yes (ANAHI BISHOP APRN) Review of Systems Review of Systems Constitutional: see HPI EENTM: see HPI Respiratory: no symptoms reported Cardiovascular: no symptoms reported Gastrointestinal: abdominal pain Genitourinary: no symptoms reported Musculoskeletal: no symptoms reported Skin: no symptoms reported Psychiatric/Neurological: No Symptoms Reported Hematologic/Lymphatic: No Symptoms Reported Immunological/Allergic: no symptoms reported (ANAHI BISHOP APRN) Past Ffmdszo-Sazgzr-Yuznip Hx Immunizations Up To Date Tetanus Booster (TDap): Unknown (ANAHI BISHOP APRN) Seasonal Allergies Seasonal Allergies: No (ANAHI BISHOP APRN) Past Medical History Surgery/Hospitalization HX: LIVER BIOSBY Surgeries: Yes (PINS IN THE LEFT ELBOW A CHILD) Orthopedic Respiratory: No Currently Using CPAP: No Currently Using BIPAP: No Cardiac: No Neurological: No Reproductive Disorders: No Sexually Transmitted Disease: No HIV/AIDS: No Genitourinary: Yes Kidney Stones Gastrointestinal: Yes Chronic Constipation, Hepatitis, Gall Bladder Disease Musculoskeletal: No Endocrine: No HEENT: No Loss of Vision: Denies Hearing Impairment: Denies Cancer: No Psychosocial: No Integumentary: No Blood Disorders: Yes (HEP C) Adverse Reaction/Blood Tranf: No (ANAHI BISHOP APRN) Physical Exam Vital Signs Vital Signs - First Documented 12/10/20 12/10/20 11:50 14:46 Temp 36.5 Pulse 90 Resp 20 B/P (MAP) 164/124 (137) Pulse Ox 98 O2 Delivery Room Air (AGATHA NUÑEZ MD) Vital Signs Capillary Refill : (ANAHI BISHOP APRN) Height, Weight, BMI Height: 6'1.00" Weight: 191lbs. oz. 86.546001sf; 19.00 BMI Method:Stated General Appearance: Chronically ill, Mild Distress, Thin HEENT: PERRL/EOMI, TMs Normal Neck: Full Range of Motion, Normal Inspection Respiratory: No Accessory Muscle Use, No Respiratory Distress Cardiovascular: Regular Rate, Rhythm Gastrointestinal: Normal Bowel Sounds, Soft, Tenderness Extremity: Normal Capillary Refill, Normal Inspection Neurologic/Psychiatric: Alert, Oriented x3 Skin: Normal Color, Warm/Dry (ANAHI BISHOP APRN) Procedures/Interventions Suture Size: 5-0 (ANAHI BISHOP APRN) Progress/Results/Core Measures Suspected Sepsis SIRS Temperature: Pulse: Respiratory Rate: Laboratory Tests 12/10/20 12:00: White Blood Count 6.3 Blood Pressure / Mean: Laboratory Tests 12/10/20 12:00: Creatinine 0.89, Platelet Count 222, Total Bilirubin 0.6 (ANAHI BISHOP APRN) Results/Orders Lab Results Laboratory Tests Test 8/20/21 12:00 Range/Units White Blood Count 6.3 4.3-11.0 10^3/uL Red Blood Count 4.54 4.30-5.52 10^6/uL Hemoglobin 14.3 13.3-17.7 g/dL Hematocrit 42 40-54 % Mean Corpuscular Volume 93 80-99 fL Mean Corpuscular Hemoglobin 32 25-34 pg Mean Corpuscular Hemoglobin Concent 34 32-36 g/dL Red Cell Distribution Width 11.9 10.0-14.5 % Platelet Count 222 130-400 10^3/uL Mean Platelet Volume 9.6 9.0-12.2 fL Immature Granulocyte % (Auto) 0 % Neutrophils (%) (Auto) 67 42-75 % Lymphocytes (%) (Auto) 18 12-44 % Monocytes (%) (Auto) 7 0-12 % Eosinophils (%) (Auto) 7 0-10 % Basophils (%) (Auto) 1 0-10 % Neutrophils # (Auto) 4.2 1.8-7.8 10^3/uL Lymphocytes # (Auto) 1.1 1.0-4.0 10^3/uL Monocytes # (Auto) 0.5 0.0-1.0 10^3/uL Eosinophils # (Auto) 0.4 H 0.0-0.3 10^3/uL Basophils # (Auto) 0.1 0.0-0.1 10^3/uL Immature Granulocyte # (Auto) 0.0 0.0-0.1 10^3/uL Sodium Level 139 135-145 MMOL/L Potassium Level 3.9 3.6-5.0 MMOL/L Chloride Level 103 98-107 MMOL/L Carbon Dioxide Level 22 21-32 MMOL/L Anion Gap 14 5-14 MMOL/L Blood Urea Nitrogen 12 7-18 MG/DL Creatinine 0.89 0.60-1.30 MG/DL Estimat Glomerular Filtration Rate 95 BUN/Creatinine Ratio 13 Glucose Level 103 70-105 MG/DL Calcium Level 9.9 8.5-10.1 MG/DL Corrected Calcium 9.6 8.5-10.1 MG/DL Total Bilirubin 0.6 0.1-1.0 MG/DL Aspartate Amino Transf (AST/SGOT) 22 5-34 U/L Alanine Aminotransferase (ALT/SGPT) 22 0-55 U/L Alkaline Phosphatase 107 40-136 U/L Total Protein 7.9 6.4-8.2 GM/DL Albumin 4.4 3.2-4.5 GM/DL Lipase 17 8-78 U/L (AGATHA NUÑEZ MD) Vital Signs/I&O 12/10/20 12/10/20 11:50 14:46 Temp 36.5 36.5 Pulse 90 65 Resp 20 20 B/P (MAP) 164/124 (137) 121/63 (137) Pulse Ox 98 98 O2 Delivery Room Air (AGATHA NUÑEZ MD) Vital Signs/I&O Capillary Refill : (ANAHI BISHOP APRN) Departure Impression Primary Impression: Cancer associated pain Additional Impressions: RUQ abdominal pain Cholangiocarcinoma Disposition: 01 HOME, SELF-CARE Condition: Stable Departure-Patient Inst. Decision time for Depature: 13:29 (ANAHI BISHOP APRN) Referrals: [facility] (PCP) Primary Care Physician REJI CANCINO APRN (Family) Primary Care Physician Patient Instructions: No Instuctions Given Scripts Oxycodone HCl (Oxycodone HCl) 10 Mg Tablet 10 MG PO Q6H PRN for PAIN-MODERATE (5-7) for 7 Days, #10 TAB Prov: ANAHI BISHOP APRN 12/10/20 ATTENDING PHYSICIAN NOTE: I was physically present as attending physician in the emergency department during the care of this patient, but I was not directly involved in the decision making or delivery of care for this patient. (AGATHA NUÑEZ MD) ANAHI BISHOP APRN Dec 10, 2020 11:58 AGATHA NUÑEZ MD Dec 12, 2020 20:37
[2020-12-10] MEDS ORDERED: HYDROmorphone 2 MG/ML VIAL (DILAUDID) IV ONE (12:00)
[2020-12-10] MEDS ORDERED: LACTATED RINGERS 1,000 ML IV SCH (12:00)
[2020-12-10 12:03] LABS: BASOPHILS # (AUTO) 0.1 10^3/uL (0.0-0.1); BASOPHILS % (AUTO) 1 % (0-10); EOSINOPHILS # (AUTO) 0.4 10^3/uL (0.0-0.3); EOSINOPHILS % (AUTO) 7 % (0-10); HEMATOCRIT 42 % (40-54); HEMOGLOBIN 14.3 g/dL (13.3-17.7); LYMPHOCYTES # (AUTO) 1.1 10^3/uL (1.0-4.0); LYMPHOCYTES % (AUTO) 18 % (12-44); MEAN CORPUSCULAR HEMOGLOBIN 32 pg (25-34); MEAN CORPUSCULAR HGB CONC 34 g/dL (32-36); MEAN CORPUSCULAR VOLUME 93 fL (80-99); MEAN PLATELET VOLUME 9.6 fL (9.0-12.2); MONOCYTES # (AUTO) 0.5 10^3/uL (0.0-1.0); MONOCYTES % (AUTO) 7 % (0-12); NEUTROPHILS # (AUTO) 4.2 10^3/uL (1.8-7.8); NEUTROPHILS % (AUTO) 67 % (42-75); PLATELET COUNT 222 10^3/uL (130-400); WHITE BLOOD COUNT 6.3 10^3/uL (4.3-11.0)
[2020-12-10 12:14] LABS: ALBUMIN 4.4 GM/DL (3.2-4.5)
[2020-12-10 12:15] LABS: POTASSIUM 3.9 MMOL/L (3.6-5.0)
[2020-12-10 12:16] LABS: CALCIUM 9.9 MG/DL (8.5-10.1)
[2020-12-10 12:17] LABS: TOTAL PROTEIN 7.9 GM/DL (6.4-8.2)
[2020-12-10 12:19] LABS: BILIRUBIN,TOTAL 0.6 MG/DL (0.1-1.0)
[2020-12-10 12:21] LABS: CREATININE SERUM 0.89 MG/DL (0.60-1.30)
[2020-12-10] MEDS ORDERED: DROPERIDOL 5 MG/2 ML (INAPSINE) AMP IV ONE (13:30)
[2020-12-10] MEDS ORDERED: KETOROLAC 30 MG/ML VIAL IVP ONE (13:30)
[2020-12-10] MEDS ORDERED: OXYC10TA7 PO (13:31)
[2020-12-10 14:46] VITALS: BP 121/63
== END 2020-12-10 14:46 | disposition home or self-care (01) ==
LOC: EDUNIT# 11:02 → ER 11:03
DX: C22.1 Intrahepatic bile duct carcinoma (principal); G89.3 Neoplasm related pain (acute) (chronic)
CPT/HCPCS: 36415; 80053; 83690; 85025; 96361; 96374; 96375

== ENCOUNTER → 2020-12-28 | Outpatient (CLI) | payer OTHER ==
[2020-12-28 15:09] LABS: BASOPHILS % (AUTO) 0 % (0-10); EOSINOPHILS % (AUTO) 0 % (0-10); HEMATOCRIT 35 % (40-54); HEMOGLOBIN 11.9 g/dL (13.3-17.7); LYMPHOCYTES # (AUTO) 0.8 X 10^3 (1.0-4.0); LYMPHOCYTES % (AUTO) 9 % (12-44); MEAN CORPUSCULAR HEMOGLOBIN 31 pg (25-34); MEAN CORPUSCULAR HGB CONC 34 g/dL (32-36); MEAN CORPUSCULAR VOLUME 93 fL (80-99); MEAN PLATELET VOLUME 9.2 fL (9.0-12.2); MONOCYTES # (AUTO) 0.1 X 10^3 (0.0-1.0); MONOCYTES % (AUTO) 1 % (0-12); NEUTROPHILS # (AUTO) 7.7 X 10^3 (1.8-7.8); NEUTROPHILS % (AUTO) 85 % (42-75); PLATELET COUNT 40 10^3/uL (130-400); WHITE BLOOD COUNT 9.1 10^3/uL (4.3-11.0)
[2020-12-28 15:32] LABS: CALCIUM 8.9 MG/DL (8.5-10.1); CREATININE SERUM 0.81 MG/DL (0.60-1.30); POTASSIUM 4.2 MMOL/L (3.6-5.0)
[2020-12-28 15:33] LABS: ALBUMIN 3.8 GM/DL (3.2-4.5); BILIRUBIN,TOTAL 0.5 MG/DL (0.1-1.0); TOTAL PROTEIN 7.1 GM/DL (6.4-8.2)
[2020-12-28 15:34] LABS: BAND NEUTROPHILS 24 %; BASOPHILS % (MANUAL) 0 %; EOSINOPHILS % (MANUAL) 0 %; LYMPHOCYTES % (MANUAL) 10 %; MONOCYTES % (MANUAL) 0 %; NEUTROPHILS % (MANUAL) 66 %; PLATELET ESTIMATE DECREASED
== END ==
LOC: LAB FS 14:11
PROVIDERS: ATTEND Nurse Practitioner Family
DX: R50.9 Fever, unspecified (principal); C22.9 Malignant neoplasm of liver, not specified as primary or secondary
CPT/HCPCS: 36415; 80053; 85007; 85027

== ENCOUNTER → 2020-12-31 | Outpatient (CLI) | payer OTHER ==
--- NOTE | 2020-12-31 15:32 | Diagnostic Imaging Report ---
INDICATION: Dysuria EXAMINATION: Left nephrostomy catheter COMPARISON: 11/27/2020 FINDINGS: 2 views demonstrate nephrostomy catheter on the left. Bowel gas pattern is nondistended. There is no significant constipation. No large pocket of free air is seen. Cholecystectomy clips are present. IMPRESSION: Left-sided nephrostomy catheter tube. Nondistended bowel gas pattern. Dictated by: Dictated on workstation # [id number]
== END ==
LOC: RAD FS 15:10
PROVIDERS: ATTEND Nurse Practitioner Family
DX: R30.0 Dysuria (principal); R82.90 Unspecified abnormal findings in urine; Z93.6 Other artificial openings of urinary tract status
CPT/HCPCS: 74018